=== PATIENT | male | born 1945 | race Caucasian/White ===

== ENCOUNTER → 2023-12-29 11:33 | Outpatient (REF) | payer MEDICARE, OTHER, SELFPAY ==
[2023-12-29 12:32] LABS: % Basophils 0.7 % (0-2); % Immature Granulocytes 0.3 % (0-0.5); % Lymphocytes 26.5 % (20.5-51.1); % Monocytes 8.9 % (1.7-9.3); % Neutrophils 60.6 % (42.2-75.2); Absolute Basophils 0.1 10^3/uL (0-0.2); Absolute Eosinophils 0.2 10^3/uL (0-0.7); Absolute Lymphocytes 1.9 10^3/uL (1.2-3.4); Absolute Monocytes 0.7 10^3/uL (0.1-0.6); Absolute Neutrophils 4.5 10^3/uL (1.4-6.5); Hematocrit 46.5 % (39.0-52.0); Hemoglobin 16.2 g/dL (13.0-18.0); Mean Corp Hgb Conc. 34.8 g/dL (33.0-37.0); Mean Corpuscular Hgb 32.3 pg (27.0-31.0); Mean Corpuscular Volume 92.6 fL (80.0-94.0); Mean Platelet Volume 9.4 fL (7.4-10.4); Nucleated Red Blood Cells % 0 % (-); Platelet Count 219 10^3/uL (130-400); Red Blood Cell Count 5.02 10^6/uL (4.70-6.10); Red Cell Dist. Width 12.7 % (11.5-14.5); White Blood Cell Count 7.3 10^3/uL (4.8-10.8)
[2023-12-29 12:47] LABS: ALT (SGPT) 30 U/L (0-50); AST (SGOT) 32 U/L (17-59); Albumin 4.8 g/dl (3.5-5.0); Alkaline Phosphatase 73 U/L (38-126); Blood Urea Nitrogen 23 mg/dl (9-20); Calcium 9.9 mg/dl (8.4-10.2); Carbon Dioxide 27 mmol/L (22-30); Chloride 103 mmol/L (98-107); Glucose 92 mg/dl (70-99); HDL Cholesterol 47 mg/dl; LDL Cholesterol, Calculated 196 mg/dl; Potassium 4.4 mmol/L (3.5-5.1); Sodium 137 mmol/L (135-145); Total Cholesterol 286 mg/dl (50-199); Total Protein 7.6 g/dl (6.3-8.2); Triglyceride 218 mg/dl (10-149); Very Low Density Lipoprotein 43 mg/dl (0-30); eGFR > 60.00
[2023-12-29 13:17] LABS: PSA, Total - Screen 1.28 ng/ml (0.0-4.0); TSH 1.99 uIU/ml (0.47-4.68)
== END ==
LOC: REG 11:33
PROVIDERS: ATTENDING PHYSICIAN Internal Medicine
DX: E78.5 Hyperlipidemia, unspecified (principal); R06.83 Snoring; G47.33 Obstructive sleep apnea (adult) (pediatric); N40.0 Benign prostatic hyperplasia without lower urinary tract symptoms; Z12.5 Encounter for screening for malignant neoplasm of prostate
CPT/HCPCS: 36415; 80053; 80061; 84443; 85025; G0103

== ENCOUNTER → 2025-01-08 10:40 | Outpatient (REF) | payer MEDICARE, OTHER, SELFPAY ==
[2025-01-08 11:29] LABS: % Basophils 0.7 % (0-2); % Eosinophils 3.4 % (0-6); % Immature Granulocytes 0.3 % (0-0.5); % Lymphocytes 23.1 % (20.5-51.1); % Monocytes 7.8 % (1.7-9.3); % Neutrophils 64.7 % (42.2-75.2); Absolute Basophils 0.1 10^3/uL (0-0.2); Absolute Eosinophils 0.2 10^3/uL (0-0.7); Absolute Lymphocytes 1.7 10^3/uL (1.2-3.4); Absolute Monocytes 0.6 10^3/uL (0.1-0.6); Absolute Neutrophils 4.6 10^3/uL (1.4-6.5); Hematocrit 44.6 % (39.0-52.0); Hemoglobin 15.6 g/dL (13.0-18.0); Mean Corpuscular Volume 94.3 fL (80.0-94.0); Mean Platelet Volume 10.2 fL (7.4-10.4); Nucleated Red Blood Cells % 0 % (-); Platelet Count 173 10^3/uL (130-400); Red Blood Cell Count 4.73 10^6/uL (4.70-6.10); Red Cell Dist. Width 12.8 % (11.5-14.5); White Blood Cell Count 7.1 10^3/uL (4.8-10.8)
[2025-01-08 12:01] LABS: ALT (SGPT) 24 U/L (0-50); AST (SGOT) 25 U/L (17-59); Albumin 4.5 g/dl (3.5-5.0); Alkaline Phosphatase 66 U/L (38-126); Blood Urea Nitrogen 21 mg/dl (9-20); Calcium 9.4 mg/dl (8.4-10.2); Carbon Dioxide 27 mmol/L (22-30); Chloride 107 mmol/L (98-107); Glucose 97 mg/dl (70-99); HDL Cholesterol 41 mg/dl; LDL Cholesterol, Calculated 120 mg/dl; Potassium 4.6 mmol/L (3.5-5.1); Sodium 142 mmol/L (135-145); Total Cholesterol 192 mg/dl (50-199); Total Protein 6.9 g/dl (6.3-8.2); Triglyceride 156 mg/dl (10-149); Very Low Density Lipoprotein 31 mg/dl (0-30); eGFR > 60.00
[2025-01-08 12:25] LABS: PSA, Total - Screen 1.02 ng/ml (0.0-4.0)
== END ==
LOC: REG 10:40
PROVIDERS: ATTENDING PHYSICIAN Physician Assistant
DX: R07.89 Other chest pain (principal); R06.09 Other forms of dyspnea; E78.5 Hyperlipidemia, unspecified; G47.33 Obstructive sleep apnea (adult) (pediatric); Z12.5 Encounter for screening for malignant neoplasm of prostate
CPT/HCPCS: 36415; 80053; 80061; 85025; G0103

== ENCOUNTER → 2025-01-18 15:46 | Outpatient (REF) | payer MEDICARE, OTHER, SELFPAY | LOC: RCS 15:46 | PROVIDERS: ATTENDING PHYSICIAN Physician Assistant | DX: R07.89 Other chest pain (principal); R06.09 Other forms of dyspnea | CPT/HCPCS: 93306 ==

== ENCOUNTER → 2025-01-21 09:55 | Outpatient (REF) | payer MEDICARE, OTHER, SELFPAY | LOC: RCS 09:55 | PROVIDERS: ATTENDING PHYSICIAN Physician Assistant | DX: R07.89 Other chest pain (principal); R06.09 Other forms of dyspnea | CPT/HCPCS: 93017 ==

== ENCOUNTER 2025-01-28 07:01 | Day surgery (SDC) | payer MEDICARE, OTHER, SELFPAY ==
[2025-01-28] VITALS (10 sets, daily range): BP systolic 102–140; BP diastolic 67–95; BMI 29.7
[2025-01-28] MEDS: LOW STRENGTH ASPIRIN 324 MG PO (07:53)
--- NOTE | 2025-01-28 08:41 | ITS.CL.CATH ---
Library Assistant - Catheterization
Cardiac Catheterization
Procedure Report:
CARDIAC CATHETERIZATION REPORT
Date of Procedure: 01/28/2025
Referring: Jethro Beltran M.D.
INDICATION: Typical angina, multiple CAD risk factors, high risk stress test.
PROCEDURE:
1. Left heart catheterization.
2. Coronary angiography.
A total of 28 minutes of procedural/moderate sedation was utilized. An independent product manager medical device was present to assist with and help manage the patient's level of consciousness and physiologic status.
ACCESS:
1. 6 [place] right rate artery using a modified Seldinger technique.
CATHETERS:
1. 5 [place] JR4.
2. 5 [place] JL 3.5.
HEMODYNAMIC DATA
Weight (kg): 83.5
AO (s/d/x, mmHg): 110/75/90
LV (s/x mmHg): 112/12
LEFT VENTRICULOGRAPHY: Not performed.
CORONARY ANGIOGRAPHY
Dominance: Right.
Left Main: Normal size, bifurcating vessel. There is a calcified, 70% lesion in the distal vessel leading into the ostial LAD and circumflex.
LAD: Normal size vessel giving rise to 1 notable diagonal. There is a 70% lesion in the ostium of the vessel that extends from the 70% distal left main lesion. There is a 50-60% lesion in the proximal vessel, proximal to the origin of the
diagonal.
Ramus: Congenitally absent.
Circumflex: Normal size, nondominant vessel that is essentially a single large obtuse marginal which bifurcates into several daughter vessels. The terminal vessels of the circumflex are severely tortuous. There is an 80% lesion in the ostium of
the vessel that extends from the left main coronary artery. Immediately distal to this 80% lesion is a 90% lesion in the proximal circumflex with post stenotic dilation.
RCA: Small to medium size, dominant vessel with diffuse, mild to moderate disease but no discrete stenosis.
INTERVENTION(S)
None.
Closure Device: Vascular band.
Radiation (mGy): 280.96
DAP (cm2.Gy): 24.7282
Fluoroscopy time (minutes): 3.6
CONCLUSIONS
1. Right dominant circulation with mild to moderate, diffuse disease in the RCA, a 70% lesion in the distal left main coronary artery leading into a 70% lesion in the ostium of the LAD as well as an 80% lesion in the ostium of the left circumflex,
a separate, 50-60% lesion in the proximal LAD, proximal to the origin of D1 and a 90% lesion in the proximal circumflex with poststenotic dilation.
2. Normal filling pressures (LVEDP = 12 mmHg at 83.5 kg).
RECOMMENDATIONS:
1. Expectant management after cardiac catheterization via right radial approach.
2. Limited weight bearing on the right wrist for one week.
3. Consultation with CT surgery regarding optimal revascularization strategy.
4. Start metoprolol 25 mg daily and sublingual nitroglycerin as needed.
5. Aggressive secondary prevention with high-dose, high potency statin. Goal LDL <55.
6. Stable for outpatient follow-up.
Copy to: Jethro Beltran M.D., Gabo Bashir M.D.
Mark Choe DO, FACC, FACP
[2025-01-28] MEDS: NSS 1000 IV (09:28)
[2025-01-28] MEDS: NSS 250 ML IV (09:30)
== END 2025-01-28 13:32 | disposition home or self-care (01) ==
LOC: CATH 07:01
PROVIDERS: ATTENDING PHYSICIAN Internal Medicine Cardiovascular Disease; CONSULT PHYSICIAN Thoracic Surgery (Cardiothoracic Vascular Surgery); FAMILY PHYSICIAN Physician Assistant; OTHER PHYSICIAN Internal Medicine Cardiovascular Disease
DX: R94.39 Abnormal result of other cardiovascular function study (principal); I25.10 Atherosclerotic heart disease of native coronary artery without angina pectoris; E78.5 Hyperlipidemia, unspecified; R06.09 Other forms of dyspnea; G47.33 Obstructive sleep apnea (adult) (pediatric); Z85.828 Personal history of other malignant neoplasm of skin; Z87.891 Personal history of nicotine dependence; Z79.82 Long term (current) use of aspirin
CPT/HCPCS: 99152; 99153; C1894; 93458; Q9967

== ENCOUNTER 2025-02-18 05:11 | Inpatient (IN) | payer MEDICARE, OTHER, SELFPAY ==
[2025-02-12 12:16] VITALS: BMI 28.5
[2025-02-12 13:05] LABS: Hematocrit 42.5 % (39.0-52.0); Hemoglobin 15.2 g/dL (13.0-18.0); Mean Corp Hgb Conc. 35.8 g/dL (33.0-37.0); Mean Corpuscular Volume 92.0 fL (80.0-94.0); Nucleated Red Blood Cells % 0 % (-); Platelet Count 190 10^3/uL (130-400); Red Cell Dist. Width 12.7 % (11.5-14.5)
[2025-02-12 13:07] LABS: Urine Character Clear (Clear)
[2025-02-12 13:17] LABS: INR 1.01; PT 13.6 Sec (11.4-14.6)
[2025-02-12 13:18] LABS: APTT 30.4 Sec (23.4-35.0)
[2025-02-12 13:23] LABS: ALT (SGPT) 23 U/L (0-50); AST (SGOT) 24 U/L (17-59); Albumin 4.5 g/dl (3.5-5.0); Alkaline Phosphatase 63 U/L (38-126); Blood Urea Nitrogen 18 mg/dl (9-20); Calcium 10.1 mg/dl (8.4-10.2); Carbon Dioxide 27 mmol/L (22-30); Chloride 107 mmol/L (98-107); Estimated Creatinine Clearance 55 ml/min; Glucose 77 mg/dl (70-99); Potassium 4.4 mmol/L (3.5-5.1); Sodium 141 mmol/L (135-145); Total Protein 7.0 g/dl (6.3-8.2); eGFR > 60.00
--- NOTE | 2025-02-12 14:10 | CM ---
[facility] He states prior to admission he resides with his spouse in a two story home with two steps to enter. He states he has a full flight of steps to get to bedroom/full bathroom. He states he has a powder room on the
first floor. He states prior to admission he was independent with ambulation and adls. He states he has a CPAP Machine at home and no other DME in the home. He states he has a prescription plan and uses [facility]. He states his spouse will
be home. The discharge plan is to return home with his spouse and a home visit by the Transitional Care Nurse when medically stable.
We reviewed pre-op and post-op routines. We reviewed the shower instructions. He has the soap, written instructions and the Cardiothoracic Surgery Educational Booklet. We also reviewed restrictions including driving and sternal precautions. We
discussed a home visit by the Transitional Care Nurse. He is agreeable to a home visit. The plan is for CABG on Tuesday, February 18, 2025.
[2025-02-13 08:30] LABS: Glycohemoglobin (HgbA1c) 5.9 % (4.0-5.6)
[2025-02-18] VITALS (24 sets, daily range): BP systolic 85–139; BP diastolic 60–97; BMI 27.9
[2025-02-18] MEDS: PROTONIX 40 MG PO (05:51)
[2025-02-18] MEDS: MAGNESIUM OXIDE 500 MG PO (05:51)
[2025-02-18] MEDS: LOPRESSOR 25 MG PO (05:51)
[2025-02-18] MEDS: BACTROBAN 2% OINTMENT 1 APPLIC NASAL ×2 (05:51→19:53)
--- NOTE | 2025-02-18 06:08 | PTCARENOTE ---
Patient admitted to CVICU. Admission questions asked. Medication reconciliation performed. Patient clipped and CHG cloth bath performed. Labs obtained. Medications administered. Awaiting CVOR.
--- NOTE | 2025-02-18 06:11 | W.CVOR.SURPR ---
CVOR Surgeon Immed Pre Op
-
I have examined this patient prior to performance of the scheduled procedure.
The patient's condition is unchanged from the time of the dictated/written History and
Physical and the patient is able to undergo the scheduled procedure.
[2025-02-18 07:29] LABS: Urine Character Clear (Clear)
[2025-02-18 07:48] LABS: ACT+ - POC 126 Seconds (82-134)
--- NOTE | 2025-02-18 08:41 | CM ---
Reviewed chart. Mr. Ochoa is in the operating room today. Prior to admission he resides with his spouse in a two story home with two steps to enter. He has a full flight of steps to get to bedroom/full bathroom. He has a powder room on the first
floor. Prior to admission he was independent with ambulation and adls. He has a CPAP Machine at home and no other DME int he home. He has a prescription plan and uses [facility]. His spouse will be home. The discharge plan is to return home
with his spouse and a home visit by the Transitional Care Nurse when medically stable.
[2025-02-18 09:29] LABS: ACT+ - POC 546 Seconds (82-134)
[2025-02-18 10:00] LABS: B.E. - POC 0.7 mmol/L; Glucose - POC 108 mg/dl (70-99); HCO3 - POC 26 mmol/L (21-28); Hematocrit - POC 38 % PCV (42-52); Hemodilution- POC No; Hemoglobin Calculated - POC 12.9; Ionized Calcium - POC 1.22 mmol/L (1.15-1.33); Lactate - POC 1.01 mmol/L (0.36-0.75); O2 Saturation %Calculated-POC 99.7 % (94-98); PCO2 - POC 42 mmHg (35-48); PO2 - POC 212 mmHg (83-108); Potassium - POC 3.7 mmol/L (3.5-5.1); Sodium - POC 140 mmol/L (136-145); Specimen Type - POC Arterial; pH - POC 7.40 (7.35-7.45)
[2025-02-18 10:11] LABS: ACT+ - POC 568 Seconds (82-134)
[2025-02-18 10:39] LABS: B.E. - POC 4.0 mmol/L; Glucose - POC 131 mg/dl (70-99); HCO3 - POC 27 mmol/L (21-28); Hematocrit - POC 30 % PCV (42-52); Hemodilution- POC Yes; Hemoglobin Calculated - POC 10.1; Ionized Calcium - POC 1.03 mmol/L (1.15-1.33); Lactate - POC 1.13 mmol/L (0.36-0.75); O2 Saturation %Calculated-POC 100.0 % (94-98); PCO2 - POC 35 mmHg (35-48); PO2 - POC 352 mmHg (83-108); Potassium - POC 5.3 mmol/L (3.5-5.1); Sodium - POC 141 mmol/L (136-145); Specimen Type - POC Arterial; pH - POC 7.50 (7.35-7.45)
[2025-02-18 10:48] LABS: ACT+ - POC 476 Seconds (82-134)
[2025-02-18 11:28] LABS: B.E. - POC 3.3 mmol/L; Glucose - POC 153 mg/dl (70-99); HCO3 - POC 27 mmol/L (21-28); Hematocrit - POC 32 % PCV (42-52); Hemodilution- POC Yes; Hemoglobin Calculated - POC 10.8; Ionized Calcium - POC 1.07 mmol/L (1.15-1.33); Lactate - POC 1.18 mmol/L (0.36-0.75); O2 Saturation %Calculated-POC 100.0 % (94-98); PCO2 - POC 35 mmHg (35-48); PO2 - POC 347 mmHg (83-108); Potassium - POC 5.1 mmol/L (3.5-5.1); Sodium - POC 141 mmol/L (136-145); Specimen Type - POC Arterial; pH - POC 7.49 (7.35-7.45)
[2025-02-18 11:36] LABS: ACT+ - POC 126 Seconds (82-134)
[2025-02-18 11:38] LABS: B.E. - POC -0.0 mmol/L; Glucose - POC 128 mg/dl (70-99); HCO3 - POC 25 mmol/L (21-28); Hematocrit - POC 29 % PCV (42-52); Hemodilution- POC Yes; Hemoglobin Calculated - POC 9.8; Ionized Calcium - POC 1.25 mmol/L (1.15-1.33); Lactate - POC 1.54 mmol/L (0.36-0.75); O2 Saturation %Calculated-POC 100.0 % (94-98); PCO2 - POC 39 mmHg (35-48); PO2 - POC 372 mmHg (83-108); Potassium - POC 4.4 mmol/L (3.5-5.1); Sodium - POC 142 mmol/L (136-145); Specimen Type - POC Arterial; pH - POC 7.41 (7.35-7.45)
--- NOTE | 2025-02-18 12:12 | W.IMMPOSTOP ---
Addendum entered and electronically signed by Taj Condon MD 02/18/25 14:00:
[id number]
Original Note:
Surgical Immed Post Op Note
-
CARDIAC SURGERY OPERATIVE NOTE:
Preoperative Dx:
MVCAD including LM disease
Postoperative Dx:
Same
Procedures:
1) Median sternotomy
2) Takedown of THOMAS (narrow pedicle)
3) Endoscopic harvest/prep of RLE GSV
4) CABG x 2 (THOMAS to LAD, GSV to OM)
5) ELAA (40mm AtriClip)
Surgeon:
Taj Condon M.D.
Assistants:
Carlos CarterAJoseline-CJoseline; patient care nursing assistant throughout
Bob Hong-CJoseline; endoscopic harvest/prep of RLE GSV; [id number]-sonf sternotomy closure
Anesthesia:
Marbella LeeN.A. and Hamlet Blanco M.D.
Perfusion:
Stacey RuizC.P.; XC: 62min, CPB: 86min
Findings:
THOMAS was a healthy conduit w/ brisk blood flow, slightly small ELD (2.25mm)
GSV was healthy conduit w/ ELD 3.5mm
LAD was visible on the epicardial surface, moderate scattered calcifications, ELD 2.75mm at distal midpoint anastomosis
D1 was visible on the epicardial surface, no sig calcifications, serpentine course w/ small caliber (~1.0mm) - bypass not performed.
OM was visible on the epicardial surface, scant calcifications, serpentine course, ELD 2.75mm
SUBHA w/ 'windsock' morphology, good placement of AtriClip at base, confirmed excluded on postoperative EDMAR assessment
Good flow in both grafts on intraoperative transit-time U/S flow-probe assessment
Post-EDMAR: Normal biventricular function; trace AI
Pt. w/ baseline bradycardia in 50s-60s under GA. Initially requiring pacing. A- and V- wires placed. He then regained NSR at 69bpm which was maintained.
Implants:
Epicardial bipolar V-wire (sutures to anterior RV)
Epicardial unipolar A-wire (sutured to RA/SVG junction)
Grounding unipolar A-wire (secured to skin)
AtriClip 40mm; LOT [id number]
CT x 4 (B/L pleural, inferior mediastinal, superior mediastinal)
Sternal wires x 7
Sternal 'X' plate @ manubrium w/ 4 - 12mm and 4 - 14mm screws
Sternal 'X' plate @ lower sternal body w/ 8 - 10mm screws
Complications:
None
Transfusions:
None
Condition:
Stable/guarded to CVICU
70 sinus (0.7/0.1); 100/67, CVP 8; 100%
GTTS: levophed 5, precedex 0.5, insulin 1
--- NOTE | 2025-02-18 12:29 | W.PN.CD ---
Addendum entered and electronically signed by Donavon Rodas MD 02/18/25 14:53:
Patient seen and examined in collaboration with [employer]; agree with below.
- 79-year-old male who underwent successful CABG x 2 today.
- Remains intubated; on low-dose Levophed.
- Continue routine post-operative care as directed by CT Surgery.
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
Original Note:
Today's Communication / Plan
-
Follow telemetry
Impression / Plan
-
I/P: 79M with HLD, CHRIS and an abnormal stress test which lead to cardiac catheterization which demonstrated MV disease including LM is here for CABG
Outpatient plating stripper: Dr. Beltran
CAD s/p CABG x 2 (THOMAS to LAD, GSV to OM & Atriclip) by Dr. Condon on 02/18/2025
-Post-EDMAR: Normal biventricular function; trace AI
-Bradycardia under GA requiring pacing, now in sinus, follow telemetry
-EKG pending
HTN, chronic, metoprolol on hold
Pre-diabetes, Hgba1c 5.9%
HLD, goal LDL < 70, LDL 120 (lowest over several years), consider increasing dose to 80mg, he will likely need Zetia as well
Former smoker, continued cessation recommended
Physical Exam
Vital Signs/Labs
Vital Signs
Temp Pulse Resp BP Pulse Ox
97.5 F 80 16 130/74 98
02/18/25 05:43 02/18/25 05:43 02/18/25 05:43 02/18/25 05:51 02/18/25 05:43
02/17/25 02/18/25 02/19/25
06:59 06:59 06:59
Actual Weight 80.6 kg
PT 13.6 Sec (11.4-14.6) 02/12/25 12:32
INR 1.01 02/12/25 12:32
APTT 30.4 Sec (23.4-35.0) 02/12/25 12:32
Physical Exam
Constitutional: No acute distress and Comfortable
EENT: Anicteric and Moist mucous membranes
Cardiovascular: Rhythm & rate is regular and Pedal edema is absent
Respiratory: Respiratory effort normal and Lungs clear to auscul.
GI: Soft, Distention absent, Flat, Non tender and Normal bowel sounds
Neuro/Psych: AO x 3
Other: Skin (warm and dry)
Data Reviewed
-
Date of Service: February 18, 2025
EKG: Report Reviewed by me
Labs: Labs Reviewed by me
Old Records: Reviewed
[2025-02-18 12:49] LABS: Glucose - Point of Care 137 mg/dl (70-99)
--- NOTE | 2025-02-18 13:00 | CON.INTV ---
Consultation
Consultation Request
Date/Time Consultation Requested: 02/18/2025-1 PM
Date/Time Consultation Performed: 02/18/2025-1:30 PM
Requesting Provider: Cardiovascular surgery
Performing Provider: Dr. Cartagena
Reason for Consultation: Postoperative ventilator/critical care management
Medical History
-
Chief Complaint: CAD
History of Present Illness:
79-year-old male with a history of hyperlipidemia and central and obstructive sleep apnea on CPAP 10 cm who was noted to have underlying multivessel CAD undergone CABG and import coordinator consulted for postoperative ventilator/critical care management
02/18/2025. Patient is intubated on a ventilator and review of systems was unobtainable. Operative records were reviewed. Pressors, chest tube output, etc. were reviewed with critical care nursing.
Past Medical History
Past Medical History: None (Hyperlipidemia. CHRIS/CPAP 10 cm. Skin cancer. Former smoker quit 1999. Dental implants.)
Social History
Tobacco: Former Smoker (Quit 1999)
Drug: None
Living: With Family
Occupational Exposures: No known asbestos exposure
Environmental Exposures: No known tuberculosis exposure
Family History
Family History: Reviewed & Not Pertinent (CAD and breast cancer)
Allergies / Home Medications
Allergies
Allergy/AdvReac Type Severity Reaction Status Date / Time
No Known Allergies Allergy Verified 02/18/25 05:46
Home Medications
�Medication �Instructions �Recorded �Confirmed �Last Taken �Type
aspirin 81 mg chewable tablet 162 mg PO DAILY 01/28/25 02/18/25 02/16/25 19:00 History
atorvastatin 40 mg tablet 40 mg PO HS 01/28/25 01/28/25 02/16/25 19:00 History
metoprolol succinate 25 mg 25 mg PO DAILY #90 tabs 01/28/25 02/16/25 Rx
tablet,extended release 24 hr 1900
nitroglycerin 0.4 mg sublingual 0.4 mg sublingual [id number] PRN 01/28/25 Unknown Rx
tablet chest pain #25 tabs
Review of Systems
-
Unable to Obtain full review of systems at this time due to: Patient Intubation and Other
Vitals / Labs / Diagnostic Testing
Vital Signs
Temp Pulse Resp BP Pulse Ox
97.5 F 80 16 130/74 98
02/18/25 05:43 02/18/25 05:43 02/18/25 05:43 02/18/25 05:51 02/18/25 05:43
Diagnostic Testing:
Physical Exam
-
Exam:
Well-nourished and well-developed in no apparent distress
HEENT-atraumatic, normocephalic, oral tracheal intubation
Heart-regular rate and rhythm-no murmurs, rubs or gallops
Chest-clear to auscultation, no wheezes, crackles, median sternotomy bandage is not removed
Abdomen soft nondistended
Extremities-no cyanosis, clubbing, edema and good peripheral pulses
Integument-intact, no rashes, lesions or ecchymosis
Neurologically not alert, not oriented, not moving any of his extremities sedated on a ventilator
Assessment
-
79-year-old male with a history of hyperlipidemia and central and obstructive sleep apnea on CPAP 10 cm who was noted to have underlying multivessel CAD undergone CABG and import coordinator consulted for postoperative ventilator/critical care management
02/18/2025.
Multivessel CAD with preserved preoperative EF
Status post CABG x 2-Erlinda-LAD, GSV-OM-Dr. Condon 02/18/2025
Preoperative A1c 5.9%
Conditions present prior to admission:
Hyperlipidemia.
CHRIS/CPAP 10 cm.
Skin cancer.
Former smoker quit 1999. Dental implants.
Plan
Ventilator settings reviewed
FiO2 will be weaned
Minute ventilation will be adjusted
Arterial blood gases will be monitored
Spontaneous breathing trial will be attempted with hopeful extubation after anesthesia/sedation wear off
Pulmonary artery catheter parameters will be followed
Pressors/antihypertensive/inotropes/diuretics will be provided as needed
Monitor chest tube output
Monitor hemoglobin
Monitor platelet count and coags
Transfuse blood product if needed
CT surgery following chest tubes
Monitor blood sugar
Insulin drip per protocol
Patient can be transition once extubated to CPAP 10 cm
Aspiration precautions
VAP prevention protocol
DVT prophylaxis
Early nutrition
Early mobilization
Patient followed in the office by Dr. Rucker-kuldeep saw Radha Browner INSTRUMENT AND ELECTRICAL TECHNICIAN 01/09/2025
Critical care statement: A total of 50 minutes of critical care time was provided for this patient today. This includes management of ventilator, spontaneous breathing trial, arterial blood gases, pressors, of unstable vital signs, evaluation of the
patient at bedside, reviewing the patient's pertinent medical records including radiographs, microbiology, laboratory evaluations, and discussion with primary team and critical care nursing.
Diagnostic data:
Chest x-ray 03/03/2019-NAD, mild biapical pleural thickening
CT chest 02/13/2025-NAD
Echocardiogram 01/18/2025-EF 60-65%, mild aortic regurgitation, PA systolic 26
Exercise stress test 01/21/2025-positive EKG for ischemia with anginal symptoms, moderate to high risk study
Cardiac catheterization 01/28/2025-diffuse distal RCA disease, 70% lesion distal left main and 70% lesion in the ostium of the LAD as well as 80% lesion in the ostium of the left circumflex with a separate 60% lesion proximal LAD and 90% lesion
proximal circumflex
Spirometry 02/08/2025-FEV1 2.69 L - 103%, FVC 3.83 L - 109%
Sleep study-11/17/16: Portable monitored study at home. Respiratory event index was 8.7 events per hour. He had 16 obstructive apneas, 34 hypopneas and 22 central apneas. There were 6 mixed apneas. Saturation eveline was 80%.
Sleep study-CPAP titration-01/26/2017: CPAP titration: Sleep efficiency 79.2%, CPAP titrated to 10 cm, AHI reduced to 0.9 events/hour, O2 eveline 87%.
Data Reviewed
-
PFT: Report reviewed by me
EKG: Report reviewed by me
Radiology: Report reviewed by me
CT Scan: Report reviewed by me
Medical Tests (Nuc Med, Echo etc): Report reviewed by me
Labs: Labs reviewed by me
Old Records: Reviewed
Critical Care Time (in minutes): 50
[2025-02-18 13:06] LABS: B.E. -2.7 mmol/L; HCO3 22.6 mmol/L (21-28); O2 Saturation % 99.0 % (94-98); PCO2 40 mmHg (35-48); PO2 190 mmHg (83-108); Potassium 4.3 mMOL/L (3.5-5.1); Sodium 136 mMOL/L (136-145)
[2025-02-18 13:15] LABS: INR 1.33; PT 16.8 Sec (11.4-14.6)
[2025-02-18 13:16] LABS: APTT 31.0 Sec (23.4-35.0)
--- NOTE | 2025-02-18 13:24 | PTCARENOTE ---
received pt from the CVOR into 2266, sinus rhythm on tele w HR 70's, + peripheral pulses, epicardial AV wires insulated, left radial adeola leveled and zeroed, BP 90's/60's, Levophed infusing at 2mcg, CVP 5, 250ml LR bolus administered per CT BERT. #8
ETT/ 24cm right lip
VENT SETTINGS: 500/14/40%/+5 peep, pox 99%. Surgical sites stable, CT x4 w minimal amount of red drainage, gutierrez catheter draining pink tinged urine. CPOT 0 RASS-5
DRIPS:
Levophed 2mcg/min
Precedex 0.5mcg/kg/hr
Insulin titrated per glycemic protocol
[2025-02-18 13:29] LABS: Blood Urea Nitrogen 17 mg/dl (9-20); Estimated Creatinine Clearance 69 ml/min; Glucose 134 mg/dl (70-99); Magnesium 2.7 mg/dl (1.6-2.3)
[2025-02-18 13:44] LABS: Hematocrit 35.2 % (39.0-52.0); Hemoglobin 12.6 g/dL (13.0-18.0); Platelet Count 132 10^3/uL (130-400)
[2025-02-18 14:09] LABS: Glucose - Point of Care 121 mg/dl (70-99)
[2025-02-18] MEDS: ANCEF 10 IV ×2 (14:12)
[2025-02-18] MEDS: NSS 500 IV (14:12)
[2025-02-18] MEDS: TYLENOL PO (14:13)
[2025-02-18] MEDS: CALCIUM GLUCONATE 100 IV (14:18)
--- NOTE | 2025-02-18 14:18 | W.PN.UPDATE ---
Update Note
Progress Note Update
79-year-old male was electively mated on 02/18/2025 for CABG due to left main/2 vessel coronary disease.
IV fluids: 1600
U.O.:� 900
Blood:� none
Wires:� A + V wires
Drips: Levo @ 5, Insulin, Precedex
�
NEURO: sedated, pupils +2mm B/L
RESP: #8OT @24cm> 500/60%/14/5. Lungs clear B/L. 2 mediastinal (20cc on arrival) and R/L pleural (5cc on arrival) chest tubes to -20cm suction. Sanguineous drainage, no air leak, no crepitus
CV: RRR +S1, S2, no S3, no�rub, no murmur. Dermabond to median sternotomy. RIJ w/Slik
ABD: round, soft, no BS
EXT: no edema, +2/4 DP pulses B/L, no femoral bruit, RLE CHLOE wrap intact; left radial A-line intact
: Owens with clear yellow urine
�
A/P: POD #0 s/p CABG x 2 (THOMAS to LAD, GSV to OM), ELAA (40mm AtriClip)
EDMAR: EF�60-65%, mild MR
- wean and extubate
# CAD
- will require ASA, Plavix, statin, beta-jean-pierre
�
# acute surgical blood loss anemia-expected
- trend CBC
# Hx CHRIS w/CPAP
- resume�HS CPAP use (has own machine)
[2025-02-18 15:10] LABS: Glucose - Point of Care 128 mg/dl (70-99)
[2025-02-18] MEDS: PACERONE PO (15:29)
[2025-02-18 16:09] LABS: Glucose - Point of Care 96 mg/dl (70-99)
--- NOTE | 2025-02-18 16:12 | PTCARENOTE ---
pt w HR 44, set epicardial wires to AAI 80/10.
[2025-02-18 16:30] LABS: B.E. - POC 0.9 mmol/L; Blood Urea Nitrogen - POC 16 mg/dl (3-120); Chloride - POC 108 mmol/L (96-111); Creatinine - POC 0.88 mg/dl (0.3-1.0); Glucose - POC 94 mg/dl (70-99); HCO3 - POC 25 mmol/L (21-28); Hematocrit - POC 35 % PCV (42-52); Hemodilution- POC No; Hemoglobin Calculated - POC 12.0; Ionized Calcium - POC 1.27 mmol/L (1.15-1.33); Lactate - POC 2.17 mmol/L (0.36-0.75); O2 Saturation %Calculated-POC 98.5 % (94-98); PCO2 - POC 39 mmHg (35-48); PO2 - POC 111 mmHg (83-108); Potassium - POC 4.1 mmol/L (3.5-5.1); Sodium - POC 141 mmol/L (136-145); Specimen Type - POC Arterial; pH - POC 7.42 (7.35-7.45)
--- NOTE | 2025-02-18 16:39 | PTCARENOTE ---
pt extubated to 6L NC, pox 97%.
--- NOTE | 2025-02-18 16:42 | RESPNOTE ---
16:30 extubated patient and placed on 6L nasal cannula 98%
--- NOTE | 2025-02-18 16:50 | PTCARENOTE ---
CHG bath complete, pt turned from side to side without large output from CTs. Routine follow up labs obtained.
[2025-02-18 16:57] LABS: Glucose - Point of Care 102 mg/dl (70-99)
[2025-02-18 17:03] LABS: Hematocrit 35.9 % (39.0-52.0); Hemoglobin 13.1 g/dL (13.0-18.0); Platelet Count 155 10^3/uL (130-400)
[2025-02-18] MEDS: LOW STRENGTH ASPIRIN 81 MG PO (17:15)
[2025-02-18] MEDS: DILAUDID 0.5 MG IV ×2 (17:15→20:11)
--- NOTE | 2025-02-18 17:29 | PTCARENOTE ---
family at bedside, updated. Pt medicated for pain.
[2025-02-18 18:08] LABS: Glucose - Point of Care 96 mg/dl (70-99)
[2025-02-18] MEDS: OFIRMEV 100 IV (18:21)
[2025-02-18] MEDS: ANCEF 5 IV (18:21)
--- NOTE | 2025-02-18 19:00 | PTCARENOTE ---
report received from previous RN, walking rounds done. pt AAOx4, c/o sternal incision pain. A. paced on monitor via epicardial wires, HR 80. + peripheral pulses, left radial adeola leveled and zeroed, BP 110's/70's, Levophed infusing at 5mcg, CVP 5.
POX 97% on 6LNC. Surgical sites stable, CT x4 intact to -20cm wall suctionm drainage within normal limits, gutierrez catheter draining CYU, UO adequate. insulin gtt infusing per glycemic protocol. see worklist for full assessment, VS, and interventions.
[2025-02-18] MEDS: SENOKOT-S 1 TABLET PO (19:53)
[2025-02-18 20:03] LABS: Glucose - Point of Care 138 mg/dl (70-99)
[2025-02-18] MEDS: CALCIUM GLUCONATE IV (20:23)
[2025-02-18] MEDS: SODIUM BICARBONATE 50 MEQ IV (20:23)
[2025-02-18] MEDS: CALCIUM GLUCONATE 130 MG IV (20:34)
[2025-02-18] MEDS: FLEXERIL 5 MG PO (20:51)
[2025-02-18 21:58] LABS: Glucose - Point of Care 107 mg/dl (70-99)
[2025-02-18] MEDS: TYLENOL 1000 MG PO (22:03)
[2025-02-18] MEDS: ZOFRAN 4 MG IV (22:05)
[2025-02-18] MEDS: LIPITOR 40 MG PO (22:06)
--- NOTE | 2025-02-18 23:00 | PTCARENOTE ---
no acute changes in assessment. epicardial wires rate decreased to 40, pt now SR w PVCs 70s-80s. pt remains on Levo gtt @ 2mcg. POX 93% on 6LNC. CT output and UO WNL. insulin gtt maintained per protocol. all surgical sites stable. pt sleeping
between care.
[2025-02-18] MEDS: LR 250 ML IV (23:37)
[2025-02-18] MEDS: LEVOPHED 250 IV (23:37)
[2025-02-19] VITALS (23 sets, daily range): BP systolic 83–132; BP diastolic 50–90; BMI 29.3
[2025-02-19 00:10] LABS: Glucose - Point of Care 117 mg/dl (70-99)
[2025-02-19] MEDS: DILAUDID 0.5 MG IV (00:10)
[2025-02-19] MEDS: NSS 250 IV (00:20)
--- NOTE | 2025-02-19 01:06 | W.PN.CT ---
Today's Communication / Plan
-
dinesh:
-No major issues overnight. Hemodynamically and neurologically intact
-Successfully extubated yesterday 02/18 @ 1700
-Was bradycardic with frequent PAC's postop, and noted to be hypotensive d/t rhythm S/P temporary A-paced. Amiodarone and BB held
-Intrinsic rhythm is NSR 70-80's with frequent PAC's. BP noted to drop with PAC's, gave 100 mg of po Amiodarone while paced for PAC's, gave 1 dose of Toradol for suspected acute pericarditis
-Off and on Levophed overnight, currently on Levophed @ 4, remains on insulin gtt per protocol
-Monitor chest tube drainage: 2meds 250/425, R/L pleurals 140/260
-U/O since OR 845 mL
-Cont. current meds (ASA, Plavix, Lipitor, holding Amiodarone and BB)
-Kept a-line and SLIC given BP rhythm/BP issues
-Kept gutierrez until later today
-Tele phase today when off Insulin gtt
-Maintain cordis
-Maintain temporary A/V pacer wires (will cut before d/c home)
-Encourage use of IS
-Wean off of O2 as tolerated
-OOB into chair
-Ambulate
Assessment / Plan
-
Assessment:
-S/P Median sternotomy/CABG x 2 (THOMAS to LAD, GSV to OM)/Endoscopic harvest/prep of RLE GSV/ELAA (40mm AtriClip), by Dr. Condon, 02/18/25, pod#1
-Multivessel CAD
-LVEF 60-65% per intraop EEG
-Mild MR
-HTN
-HLD
-Prediabetes (A1C 5.9)
-CHRIS (uses own CPAP)
-GERD
-NAVAJO (uses bilateral hearing aids)
-Hx skin ca on face s/p excision
-Former tobacco use (quit 1999)
-Chronic back pain
-DJD
-Hx frequent UTI's
-S/p colonoscopy
-Acute postop blood loss/Anemia (stable without blood transfusion)
-Acute postop bradycardia with frequent PACs, symptomatic requiring temporary pacing
-Acute postop atelectasis
-Acute postop hypervolemia with subsequent hypervolemia
-Acute postop EKG changes suspicious of acute pericarditis/has +rub
Discussed patient care with: Cardiology, Nursing, Respiratory Therapy, Pharmacy and Care Team
Subjective
Procedure
S/P Median sternotomy/CABG x 2 (THOMAS to LAD, GSV to OM)/Endoscopic harvest/prep of RLE GSV/ELAA (40mm AtriClip), by Dr. Condon, 02/18/25
-
Date of Service: February 19, 2025
Pt c/o incisional pain, otherwise feels well
Objective Data
-
PT 16.8 Sec (11.4-14.6) H 02/18/25 12:49
INR 1.33 02/18/25 12:49
APTT 31.0 Sec (23.4-35.0) 02/18/25 12:49
Vital Signs
Vital Signs
Temp Pulse Resp BP Pulse Ox
97.6 F 75 14 88/54 94
02/19/25 00:00 02/19/25 00:00 02/19/25 00:00 02/19/25 00:00 02/19/25 00:00
CT Intake/Output/Weight
02/18/25 02/18/25 02/19/25
06:59 18:59 06:59
Intake Total 949.8 / 1167.7 217.9 / 1167.7
Output Total 645 / 1120 475 / 1120
Balance 304.8 / 47.7 -257.1 / 47.7
SaO2: 94 (2L)
Physical Exam
-
General: Awake, Oriented and AOx3
Cardiovascular: Irregular rate & rhythm (sinus with frequent PAC's), No Murmurs, Rub (+rub) and No Gallop
Respiratory: Decreased Breath Sounds (at bases)
Sternum: Stable
Incision: Clean, Dry, Intact and Dressing Intact
Extremities: Other (+trace edema)
Data Reviewed
-
Lab Results: Results Reviewed
Medications: Active Meds Reviewed
Chest X-Ray: Report Reviewed and Image Reviewed
ECG: Report Reviewed and Image Reviewed
[2025-02-19 02:15] LABS: Glucose - Point of Care 102 mg/dl (70-99)
[2025-02-19 02:20] LABS: Hematocrit 31.7 % (39.0-52.0); Hemoglobin 11.4 g/dL (13.0-18.0); Mean Corp Hgb Conc. 36.0 g/dL (33.0-37.0); Mean Corpuscular Volume 91.6 fL (80.0-94.0); Platelet Count 145 10^3/uL (130-400); Red Cell Dist. Width 12.8 % (11.5-14.5)
[2025-02-19 02:42] LABS: Blood Urea Nitrogen 21 mg/dl (9-20); Calcium 8.9 mg/dl (8.4-10.2); Carbon Dioxide 25 mmol/L (22-30); Chloride 110 mmol/L (98-107); Estimated Creatinine Clearance 61 ml/min; Glucose 104 mg/dl (70-99); Magnesium 2.1 mg/dl (1.6-2.3); Potassium 4.4 mmol/L (3.5-5.1); Sodium 140 mmol/L (135-145); eGFR > 60.00
--- NOTE | 2025-02-19 03:00 | PTCARENOTE ---
no changes in assessment. epicardial wire rate back to [address] PA. pt A.paced @ 80. pt remains on Levo gtt @ 4mcg. POX 97% on 15L midflow NC. CT output and UO WNL. insulin gtt maintained per protocol. AM labs drawn and sent. all surgical sites
stable. pt sleeping between care.
[2025-02-19] MEDS: ANCEF 5 IV ×2 (03:06→11:29)
[2025-02-19] MEDS: PACERONE 100 MG PO (03:45)
[2025-02-19 04:27] LABS: Glucose - Point of Care 102 mg/dl (70-99)
[2025-02-19] MEDS: TORADOL 15 MG IV ×2 (05:01→12:59)
[2025-02-19 05:16] LABS: Hepatitis C Antibody Negative (Negative)
[2025-02-19 06:04] LABS: Glucose - Point of Care 115 mg/dl (70-99)
[2025-02-19] MEDS: TYLENOL 1000 MG PO ×2 (06:09→19:58)
--- NOTE | 2025-02-19 07:36 | W.PN.INTV ---
Today's Communication / Plan
Recommendations
Tolerated extubation
Wean FiO2
Pressors and diuretics as needed-still on low-dose norepinephrine
Monitor chest tube output
Insulin as needed-if comes off insulin drip and moved to telemetry then grain miller helper will sign off-call pulmonary if respiratory issues arise
Assessment
-
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
02/18/2025.
Multivessel CAD with preserved preoperative EF
Status post CABG x 2-Erlinda-LAD, GSV-OM-Dr. Condon 02/18/2025
Preoperative A1c 5.9%
Postoperative pericarditis
Conditions present prior to admission:
Hyperlipidemia.
CHRIS/CPAP 10 cm.
Skin cancer.
Former smoker quit 1999. Dental implants.
Plan
Tolerated extubation
Wean FiO2
Encourage incentive spirometry
Increase activity
Aspiration precautions
CPAP 10 cm at night-brought his own machine- May temporarily need to bleed oxygen during the nighttime into CPAP
Pulmonary artery catheter and arterial line will be removed
Pressors have been weaned
Continue to monitor chest tube output
Follow hemoglobin
Continue to follow platelet count and coags
Transfuse blood product as needed
CT surgery following chest tubes as well
Follow blood sugar
Insulin supplementation continues as needed
Early nutrition
Early mobilization
DVT prophylaxis
If able to be weaned off insulin drip then patient will be transferred to telemetry-grain miller helper will sign off-please call with pulmonary questions
Patient followed in the office by Dr. Rucker-last saw Radha Simin WRIGHT 01/09/2025
Critical care statement: A total of 38 minutes of critical care time was provided for this patient today. This includes management of ventilator, spontaneous breathing trial, arterial blood gases, pressors, of unstable vital signs, evaluation of the
patient at bedside, reviewing the patient's pertinent medical records including radiographs, microbiology, laboratory evaluations, and discussion with primary team and critical care nursing.
Diagnostic data:
Chest x-ray 03/03/2019-NAD, mild biapical pleural thickening
CT chest 02/13/2025-NAD
Echocardiogram 01/18/2025-EF 60-65%, mild aortic regurgitation, PA systolic 26
Exercise stress test 01/21/2025-positive EKG for ischemia with anginal symptoms, moderate to high risk study
Cardiac catheterization 01/28/2025-diffuse distal RCA disease, 70% lesion distal left main and 70% lesion in the ostium of the LAD as well as 80% lesion in the ostium of the left circumflex with a separate 60% lesion proximal LAD and 90% lesion
proximal circumflex
Spirometry 02/08/2025-FEV1 2.69 L - 103%, FVC 3.83 L - 109%
Sleep study-11/17/16: Portable monitored study at home. Respiratory event index was 8.7 events per hour. He had 16 obstructive apneas, 34 hypopneas and 22 central apneas. There were 6 mixed apneas. Saturation eveline was 80%.
Sleep study-CPAP titration-01/26/2017: CPAP titration: Sleep efficiency 79.2%, CPAP titrated to 10 cm, AHI reduced to 0.9 events/hour, O2 eveline 87%.
Subjective Dataa
Subjective Data
Date of Service:
Date of Service: February 19, 2025
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
Subjective:
Patient tolerated extubation, No complaints of shortness of breath, has some mild pleurisy on the right side, did not wear his CPAP last night, no abdominal pain
Review of Systems
General: Other (Per HPI)
Objective Data
Data Reviewed
Vital Signs / I&O / Oxygen:
Vital Signs
Temp Pulse Resp BP Pulse Ox
98.3 F 81 15 112/73 92
02/19/25 07:00 02/19/25 07:00 02/19/25 07:00 02/19/25 06:00 02/19/25 06:30
Intake and Output
02/18/25 02/19/25 02/20/25
06:59 06:59 06:59
Intake Total 1391.3 / 1428.6 37.3 / 37.3
Output Total 1530 / 1610 80 / 80
Balance -138.7 / -181.4 -42.7 / -42.7
SaO2 [SIMV] 98
SaO2 92
Nasal Cannula flow liters per 6
minute
Physical Exam
General: Respiratory Distress and Comfortable
HEENT: Normocephalic, Anicteric and Moist Mucous Membranes
Cardiovascular: Regular Rhythm
Respiratory: Crackles (Few bases), Rhonchi (n), Non-Labored Respirations, Accessory Resp Muscle Use (n) and Stridor (n)
GI: Soft, Non Distended and Non Tender
Neurology: Awake, Alert and No Motor Deficits
Skin: Warm, Good Color, Cyanosis (n) and Jaundice (n)
Labs/Micro/Reports
Lab Data
02/19/25 02:06
02/19/25 02:06
Laboratory Results
02/18/25
12:49
PT 16.8 H
INR 1.33
APTT 31.0
pH 7.36
pCO2 40
pO2 190 H
HCO3 22.6
O2 Delivery Level
--- NOTE | 2025-02-19 08:00 | PTCARENOTE ---
report received from previous RN, walking rounds done. resting in bed at time of assessment. AAOx3, A-paced on monitor. temp epicardial wires present. V wire not connected/on. HR 80. + peripheral pulses/no edema. 97% on 8LNC. midlfow. will wean as
able. CT x4 intact to -20cm wall suction drainag serosang. gutierrez draining clear yellow urine. Surgical sites stable, insulin gtt infusing per glycemic protocol. will continue to monitor.
--- NOTE | 2025-02-19 08:11 | W.PN.ANS.POP ---
Addendum entered and electronically signed by Mirela Berry CRNA 02/19/25 08:11:
remains paced and on Levophed gtt
Original Note:
Anesthesia Post Operative
- Anesthesia Post Op Note
Vital Signs Stable-See Nursing Note: Yes
Airway Patent: Yes
Adequate Pain Control: Yes
Change in Mental Status: No
Current Postoperative Nausea & Vomiting: No
Anesthesia Complications: No
General Anesthetic Recall: No
Unplanned Admission: No
Post Op Hydration Adequate: Yes
--- NOTE | 2025-02-19 08:21 | W.PN.CD ---
Addendum entered and electronically signed by Chanel Sanches MD 02/19/25 08:37:
while observing tele, he became hypotensive transiently again.
Will update his ef and r/o effusion with focused echo
Original Note:
Today's Communication / Plan
-
continue to wean levophed as able
amio for now
pacing prn
continue to monitor for rhythm improvement
Impression / Plan
-
I/P: 79M with HLD, CHRIS and an abnormal stress test which lead to cardiac catheterization which demonstrated MV disease including LM is here for CABG
Outpatient recharger: Dr. Beltran
CAD s/p CABG x 2 (THOMAS to LAD, GSV to OM & Atriclip) by Dr. Condon on 02/18/2025
-Post-EDMAR: Normal biventricular function; trace AI
-Bradycardia under GA requiring pacing, overnight with a lot of Ventricular ectopy that was resulting in hypotension, a lead increased
-Amiodarone started, hopefully this would be temporary
-Still requiring levophed
HTN, chronic, metoprolol on hold
Pre-diabetes, Hgba1c 5.9%
HLD, goal LDL < 70, LDL 120 (lowest over several years), consider increasing dose to 80mg, he will likely need Zetia as well
Former smoker, continued cessation recommended
Physical Exam
Vital Signs/Labs
Vital Signs
Temp Pulse Resp BP Pulse Ox
98.3 F 80 18 91/61 96
02/19/25 08:00 02/19/25 08:00 02/19/25 08:00 02/19/25 08:00 02/19/25 08:00
02/18/25 02/19/25 02/20/25
06:59 06:59 06:59
Actual Weight 177 lb 11.081 oz 186 lb 11.704 oz
02/19/25 02:06
02/19/25 02:06
PT 16.8 Sec (11.4-14.6) H 02/18/25 12:49
INR 1.33 02/18/25 12:49
APTT 31.0 Sec (23.4-35.0) 02/18/25 12:49
Magnesium 2.1 mg/dl (1.6-2.3) 02/19/25 02:06
Physical Exam
Constitutional: No acute distress
Cardiovascular: Rhythm & rate is regular, Pedal edema is absent, JVD pressure is normal, Systolic murmur absent and Diastolic murmur absent
Respiratory: Respiratory effort normal, Lungs clear to auscul., Wheeze Absent, Crackles Absent and Rhonchi Absent
Neuro/Psych: AO x 3
Data Reviewed
-
Date of Service: February 19, 2025
EKG: Other (tele: a paced, vpcs)
[2025-02-19 08:53] LABS: Glucose - Point of Care 78 mg/dl (70-99)
[2025-02-19] MEDS: LIDOCAINE 4% PATCH 1 PATCH TOPICAL (10:23)
[2025-02-19] MEDS: BACTROBAN 2% OINTMENT 1 APPLIC NASAL ×2 (10:23→19:59)
[2025-02-19] MEDS: FEOSOL 325 MG PO (10:24)
[2025-02-19] MEDS: SENOKOT-S 1 TABLET PO ×2 (10:24→19:58)
[2025-02-19] MEDS: PROTONIX 40 MG PO (10:24)
[2025-02-19] MEDS: MAGNESIUM OXIDE 500 MG PO ×2 (10:24→19:58)
[2025-02-19] MEDS: PLAVIX 75 MG PO (10:25)
[2025-02-19] MEDS: LOW STRENGTH ASPIRIN 81 MG PO (10:25)
[2025-02-19] MEDS: VITAMIN C 500 MG PO (10:26)
[2025-02-19 10:36] LABS: Glucose - Point of Care 92 mg/dl (70-99)
--- NOTE | 2025-02-19 11:55 | CM ---
Reviewed dk. Met with Mr. Ochoa to review discharge plans. He states is feeling okay. Prior to admission he resides with his spouse in a two story home with two steps to enter. He has a full flight of steps to get to bedroom/full bathroom. He
has a powder room on the first floor. Prior to admission he was independent with ambulation and adls. He has a CPAP Machine at home and no other DME. He has a prescription plan and uses [facility]. His spouse will be hime. Medical work-up in
progress. The discharge plan is to return home with his spouse and a home visit by the Transitional Care Nurse when medically stable.
--- NOTE | 2025-02-19 12:04 | CARDSERVLU ---
Echocardiogram with Lumason completed after protocol screening completed. Allergies verified.
Patent IV site: __Right wrist site clear ___
IV site flushed with 0.9% NaCl pre and post administration.
Diluted bolus method utilized to enhance visualization of ventricular smith.
Total volume given: _3___ mL
Patient tolerated all procedures well without complications.
[2025-02-19] MEDS: NSS IV (12:23)
[2025-02-19 12:31] LABS: Glucose - Point of Care 105 mg/dl (70-99)
[2025-02-19] MEDS: OFIRMEV 100 IV (13:00)
[2025-02-19] MEDS: TYLENOL PO (13:04)
--- NOTE | 2025-02-19 15:05 | PTCARENOTE ---
oob to chair with assistx2. tolerating transfer. Remains NSR and on 6L nc.
[2025-02-19] MEDS: LIPITOR 40 MG PO (19:59)
[2025-02-19] MEDS: REMOVE LIDOCAINE PATCH 1 PATCH REMOVE (19:59)
--- NOTE | 2025-02-19 21:02 | PTCARENOTE ---
received pt from previous rn. Pt AAOx3, drowsy with a flat affect, VSS,NSR per tele montior w/ frequent PACs/PVCs. temp epicardial wires set to 50/10/0.4. V wire not connected/on, trace edema noted, pox 93% on 5L NC, lungs diminished throughout.
CTx4 set to -20cm wall suction draining serosanguineous blood. no air leak/tidaling/crepitus noted. +bs, gutierrez draining clear yellow urine. stat lock applied. all surgical sites intact. RIJ cordis infusing KVO, PIV intact. plan of care discussed
questions encouraged.
[2025-02-19] MEDS: FLEXERIL 5 MG PO (21:49)
--- NOTE | 2025-02-19 22:25 | PTCARENOTE ---
pt occasionally being A-paced
[2025-02-19] MEDS: ROXICODONE 2.5 MG PO (23:34)
[2025-02-20] VITALS (20 sets, daily range): BP systolic 81–135; BP diastolic 39–95; PULSE 85; O2SAT 92–93; BMI 28.9
--- NOTE | 2025-02-20 00:15 | PTCARENOTE ---
NSR per tele monitor w/ occasional A-pacing. CTPA Tsilina adjusted temporary pacing HR increased to 60 from 50. assessment remains unchanged.
[2025-02-20 03:03] LABS: Blood Urea Nitrogen 31 mg/dl (9-20); Calcium 8.0 mg/dl (8.4-10.2); Carbon Dioxide 27 mmol/L (22-30); Chloride 106 mmol/L (98-107); Estimated Creatinine Clearance 50 ml/min; Glucose 120 mg/dl (70-99); Magnesium 2.3 mg/dl (1.6-2.3); Potassium 4.5 mmol/L (3.5-5.1); Sodium 135 mmol/L (135-145); eGFR > 60.00
[2025-02-20 03:10] LABS: Hematocrit 27.7 % (39.0-52.0); Hemoglobin 9.7 g/dL (13.0-18.0); Mean Corp Hgb Conc. 35.0 g/dL (33.0-37.0); Mean Corpuscular Volume 94.5 fL (80.0-94.0); Platelet Count 132 10^3/uL (130-400); Red Cell Dist. Width 13.1 % (11.5-14.5)
--- NOTE | 2025-02-20 03:42 | PTCARENOTE ---
labs obtained, NSR w/ occasional A pacing per tele monitor. Assessment remains unchanged.
[2025-02-20] MEDS: TYLENOL 1000 MG PO ×3 (05:38→21:47)
--- NOTE | 2025-02-20 05:51 | W.PN.CT ---
Today's Communication / Plan
-
-pod#2
-no significant issues overnight. Hemodynamically and neurologically intact, A&O x4
-CT outputs: 2 meds 75/305, 2 pleur 45/135 in 12/24 hrs
-Echo 02/19 is stalbe with nl EF, no pericardial effusion
-intermittent sinus bradycardia with PACs and a-pacing @ 50 bpm - maintain pw
-currently, pacer @ AAI @ 60 bmp backup
-low BP 80s-90s, maps >65. No drips. Will start Midodrine 2.5 tid
-UO 15-30 per hr-monitor. Owens is in- likely d/c today
-Cr 1.1 today (0.9 on 02/19 and 1.0 preop)
-wt is up from 177 preop to 186 on 02/19. Wt today is pending.
-encourage IS (upto 750 so far), OOB
Assessment / Plan
-
Assessment:
-S/P Median sternotomy/CABG x 2 (THOMAS to LAD, GSV to OM)/Endoscopic harvest/prep of RLE GSV/ELAA (40mm AtriClip), by Dr. Condon, 02/18/25, pod#2
-Multivessel CAD
-LVEF 60-65% per intraop EEG
-Mild MR
-HTN
-HLD
-Prediabetes (A1C 5.9)
-CHRIS (uses own CPAP)
-GERD
-KOYUK (uses bilateral hearing aids)
-Hx skin ca on face s/p excision
-Former tobacco use (quit 1999)
-Chronic back pain
-DJD
-Hx frequent UTI's
-S/p colonoscopy
-Acute postop blood loss/Anemia (stable without blood transfusion)
-Acute postop bradycardia with frequent PACs, symptomatic requiring temporary pacing-holding BB and Amio postop
-Acute postop atelectasis
-Acute postop hypovolemia with subsequent hypervolemia
-Acute postop EKG changes suspicious of acute pericarditis/has +rub
Echo 02/19/25:
-Normal biventricular size and systolic function without regional wall motion abnormality. LV ejection fraction is 65-70% by visual assessment. Normal appearing RV size and function.
-No significant valvular disease.
-Estimated pulmonary artery pressure of 25-30 mmHg. Assuming a right atrial pressure of 3 mmHg.
-No obvious pericardial effusion. IVC was not seen.
-Compared to January 18, 2025, no significant change.
Discussed patient care with: Nursing and Care Team
Subjective
Procedure
S/P Median sternotomy/CABG x 2 (THOMAS to LAD, GSV to OM)/Endoscopic harvest/prep of RLE GSV/ELAA (40mm AtriClip), by Dr. Condon, 02/18/25
-
Date of Service: February 20, 2025
Objective Data
-
PT 16.8 Sec (11.4-14.6) H 02/18/25 12:49
INR 1.33 02/18/25 12:49
APTT 31.0 Sec (23.4-35.0) 02/18/25 12:49
Vital Signs
Vital Signs
Temp Pulse Resp BP Pulse Ox
98.9 F 73 20 95/56 96
02/20/25 00:00 02/20/25 00:00 02/20/25 00:00 02/19/25 23:40 02/20/25 00:00
CT Intake/Output/Weight
02/19/25 02/19/25 02/20/25
06:59 18:59 06:59
Intake Total 441.5 / 1428.6 460.9 / 470.9 10 / 470.9
Output Total 885 / 1610 530 / 760 230 / 760
Balance -443.5 / -181.4 -69.1 / -289.1 -220 / -289.1
SaO2: 96
Physical Exam
-
General: Awake and AOx3
Cardiovascular: Regular rate & rhythm, No Murmurs and No Rub
Respiratory: Decreased Breath Sounds
Sternum: Stable
Incision: Clean, Dry and Intact
Extremities: Other (trace edema b/l. 2+ DPs b/l)
Abdomen: soft, nontender, nondistended, + decreased bowel sounds, denies nausea or abdominal pain
Data Reviewed
-
Lab Results: Results Reviewed
Medications: Active Meds Reviewed
Chest X-Ray: Report Reviewed and Image Reviewed
ECG: Report Reviewed and Image Reviewed
[2025-02-20] MEDS: FLEXERIL 5 MG PO (06:37)
[2025-02-20] MEDS: ROXICODONE 2.5 MG PO (06:37)
--- NOTE | 2025-02-20 08:35 | PTCARENOTE ---
assumed care of pt from previous shift RN, sinus rhythm on tele w occasional A pacing and PVCs, + peripheral pulses, no edema. Lungs diminished, pox 95% on 4L NC, coughing and deep breathing encouraged. +bs, tolerating PO intake, gutierrez removed, pt
is DTV. CTs removed as ordered. Surgical sites stable, right IJ cordis w KVO infusing, PIV flushes easily. Plan of care reviewed w the pt and questions encouraged.
--- NOTE | 2025-02-20 08:49 | W.PN.CD ---
Today's Communication / Plan
-
OOB ISB
Monitor tele
Impression / Plan
-
I/P: 79M with HLD, CHRIS and an abnormal stress test which lead to cardiac catheterization which demonstrated MV disease including LM is here for CABG
Outpatient motor vehicle parts interpreter: Dr. Beltran
CAD s/p CABG x 2 (THOMAS to LAD, GSV to OM & Atriclip) by Dr. Condon on 02/18/2025
-Post-EDMAR: Normal biventricular function; trace AI
-Bradycardia under GA requiring pacing, overnight with a lot of Ventricular ectopy that was resulting in hypotension, a lead increased
-Off pressors
- birefly required temp pacing overnight, monitor
- hypotension improving
HTN, chronic, metoprolol on hold now receiving midodrine
Pre-diabetes, Hgba1c 5.9%
HLD, goal LDL < 70, LDL 120 (lowest over several years), consider increasing dose to 80mg, he will likely need Zetia as well
Former smoker, continued cessation recommended
Echo: February 19 2025 CONCLUSIONS
TDS.
Normal biventricular size and systolic function without regional wall motion
abnormality.
LV ejection fraction is 65-70% by visual assessment.
Normal appearing RV size and function.
No significant valvular disease.
Estimated pulmonary artery pressure of 25-30 mmHg. Assuming a right atrial
pressure of 3 mmHg.
No obvious pericardial effusion. IVC was not seen.
Compared to January 18, 2025, no significant change.
Physical Exam
Vital Signs/Labs
Vital Signs
Temp Pulse Resp BP Pulse Ox
99.1 F 74 18 101/63 95
02/20/25 08:00 02/20/25 08:30 02/20/25 08:00 02/20/25 08:00 02/20/25 08:46
02/19/25 02/20/25 02/21/25
06:59 06:59 06:59
Actual Weight 186 lb 11.704 oz 184 lb 4.903 oz
02/20/25 02:30
02/20/25 02:30
PT 16.8 Sec (11.4-14.6) H 02/18/25 12:49
INR 1.33 02/18/25 12:49
APTT 31.0 Sec (23.4-35.0) 02/18/25 12:49
Magnesium 2.3 mg/dl (1.6-2.3) 02/20/25 02:30
Physical Exam
Constitutional: No acute distress and Comfortable
EENT: Anicteric
Cardiovascular: Rhythm & rate is regular and Pedal edema is absent
Respiratory: Respiratory effort normal
GI: Soft
Neuro/Psych: AO x 3
Data Reviewed
-
Date of Service: February 20, 2025
EKG: Tracing Personally Visualized and interpreted ( PACs)
Echo: Tracing Personally Visualized and interpreted
Labs: Labs Reviewed by me
[2025-02-20] MEDS: FEOSOL 325 MG PO (10:36)
[2025-02-20] MEDS: PROTONIX 40 MG PO (10:36)
[2025-02-20] MEDS: SENOKOT-S 1 TABLET PO ×2 (10:37→20:24)
[2025-02-20] MEDS: BACTROBAN 2% OINTMENT 1 APPLIC NASAL ×2 (10:37→20:25)
[2025-02-20] MEDS: PLAVIX 75 MG PO (10:37)
[2025-02-20] MEDS: MAGNESIUM OXIDE 500 MG PO ×2 (10:37→20:24)
[2025-02-20] MEDS: LIDOCAINE 4% PATCH 1 PATCH TOPICAL (10:37)
[2025-02-20] MEDS: VITAMIN C 500 MG PO (10:37)
[2025-02-20] MEDS: LOW STRENGTH ASPIRIN 81 MG PO (10:37)
[2025-02-20] MEDS: NSS 500 IV (10:38)
--- NOTE | 2025-02-20 11:20 | PN.CDI ---
CDI
- -
CDI:
Physician Documentation Request
Admit Date: 02/18/25 05:11
Dear Doctor Taurus/YUDELKA,
Please review the following and provide your response in the progress notes.
Clinical Indicators:
Pt admitted with CAD for CABG s/p CABG/SUBHA clip 02/18
Pt care note 02/18 @ 1639 ,' pt extubated to 6L NC, pox 97%...'
Pt care note 02/18 @ 2300,' POX 93% on 6LNC....'
Pt care note 02/19 @0300,' POX 97% on 15L midflow NC...'
Pt care note / @ 0800, ' 97% on 8LNC. midlfow...'
Pt care note 02/19 @ 2102,' pox 93% on 5L NC, lungs diminished throughout
Pt care note 02/20 @ 0835,' Lungs diminished, pox 95% on 4L NC, coughing and deep breathing encouraged....'
02/18/25
22:30 02/19/25
00:00 02/19/25
00:30
SaO2 86 89
Flow liters per minute # 13
02/19/25
02:00 02/19/25
04:00 02/19/25
07:00
Flow liters per minute # 15 14 10
02/19/25
08:00 02/19/25
12:00 02/19/25
13:30
SaO2 87
Flow liters per minute # 8
Nasal Cannula flow liters per minute 5
02/19/25
14:00 02/19/25
20:10 02/19/25
22:05
Flow liters per minute # 6
Nasal Cannula flow liters per minute 6 5
02/20/25
04:00 07/02/25
08:00
Flow liters per minute # 4
Nasal Cannula flow liters per minute 4
Clarify which of the following accurately represents the patient's respiratory status following surgery:
Acute pulmonary insufficiency (following surgery)
Acute Hypoxic respiratory failure
Other ( please specify)
Additional information for Pulmonary Insufficiency:
Consider when patients require ad terminal makeup operator oxygen therapy postoperatively
Weaned off oxygen initially then requiring supplemental oxygen
No other definitive diagnosis to support the need for oxygen (COPD exac, CHF etc.)
Unable to wean from vent
When criteria for respiratory failure not present
May extend stay or require additional resources; may need home O2
Additional information for Respiratory Failure:
Recognized criteria for Respiratory Failure (Source: [facility] Hospitalist May/Jun 2013)
ABGs: (1 or more) Symptoms Indicate:
1. p)2 <60 or RA SPO2 <91% on RA 1. Tachypnea, SOB, dyspnea 1. Type as:
2. pCO2 50 and pH <7.35 2. Use of accessory muscles a. Hypoxic
3. pO2 decrease of pCO2 increase by 3. Pallor or cyanosis b. Hypercapnic
10 mmHg from baseline if known 4. Anxiety or restlessness 2. If due to procedure or due to another cause
5. Unable to speak in full sentences
Use of terms such as suspected, likely, concern for, or probable (associated with a specific diagnosis that is being evaluated, monitored, or treated as if it exists) are acceptable and can be coded in the inpatient setting, when documented at the
time of discharge.
Thank you,
Arianna Fulton RN
CDI Specialist
[facility]
Please use your independent medical judgment in providing your response.
--- NOTE | 2025-02-20 11:31 | PN.CDI ---
CDI
- -
CDI:
Physician Documentation Request
Admit Date: 02/18/25 05:11
Dear Doctor Taurus /YUDELKA,
Please review the following and provide your response in the progress notes.
Clinical Indicators:
Pt admitted with CAD for CABG s/p CABG/SUBHA clip 02/18
CT surgery note 02/20, ' -Cr 1.1 today (0.9 on 02/19 and 1.0 preop)...'
Cardiology note 02/19, ' -Bradycardia under GA requiring pacing, overnight with a lot of Ventricular ectopy that was resulting in hypotension...'
02/18/25 02/20/25
12:49 02:30
Creatinine 0.8 1.1
Clarify which of the following accurately represents the patient's renal status:
ELO
Bump in creatinine only
Other ( please specify)
Criteria for ELO*
1 Increase in serum creatinine by > or = to 0.3 mg/dL (> or = to 26.5 micromol/L) within 48 hours, OR
2 Increase in serum creatinine to > or = to 1.5 times baseline, which is known or presumed to have occurred within 7 days, OR
3 Urine volume < 0.5 nL/kg/hour for six hours
Use of terms such as suspected, likely, concern for, or probable (associated with a specific diagnosis that is being evaluated, monitored, or treated as if it exists) are acceptable and can be coded in the inpatient setting, when documented at the
time of discharge.
Thank you,
Arianna Fulton RN
CDI Specialist
[facility]
Please use your independent medical judgment in providing your response.
*Source: Kidney Disease: Improving Global Outcomes (KDIGO) 2012
--- NOTE | 2025-02-20 12:47 | PTCARENOTE ---
assisted pt w ambulating to bathroom from chair, pt voided 100 ml john, PVR scan 0ml.
--- NOTE | 2025-02-20 16:17 | CM ---
Reviewed chart. Met with Mr. Ochoa to review discharge plans. He states is feeling tired. We briefly review a home visit with the Transitional Care Nurse. He ambulated in the hallway today. Prior to admission he resides with his spouse in a two
story home with two steps to enter. He has a full flight of steps to get to bedroom/full bathroom. He has a powder room on the first floor. Prior to admission he was independent with ambulation. He has a CPAP Machine att home. He has a
prescription plan and uses [facility]. His spiuse will be home. Medical work-up in progress. The discharge plan is to return home with his spouse and a home visit by the Transitional Care Nurse when medically stable.
--- NOTE | 2025-02-20 17:15 | PTCARENOTE ---
assisted pt w ambulating in hallway using rolling walker, tolerated well. VSS, sinus rhythm on tele.
--- NOTE | 2025-02-20 20:00 | PTCARENOTE ---
Assumed care of patient at 1900. Patient found oob in chair at time of assessment. Patient is AOx4, follows commands appropriately, moves all extremities. Lung sounds are clear and equal bilaterally, saO2 94% on 4L, IS 750, wears CPAP HS. Heart
sounds are audible, patient is SR with PACs and PVCs frequently, normal palpable pulses, and no observable edema. Patient has A+V wires, v wires insulated, A to box, DDD settings 40/10. Patient has active BS in all four quadrants, reports gas pain
CT PA notified for mylicon, voiding in the bathroom. There is a sternal incision with aquacell dressing that is CDI, ABD dressing over CT wounds that is CDI, R groin puncture approx with surg adhesive PEPE, and RLE incision approx with surg adesive
PEPE. Patient has R IJ cordis receiving KVO and 20G in R wrist available for intermittent infusion. VSS. Call boswell within reach.
[2025-02-20] MEDS: MYLICON 160 MG PO (20:24)
[2025-02-20] MEDS: REMOVE LIDOCAINE PATCH 1 PATCH REMOVE (20:25)
[2025-02-20] MEDS: LIPITOR 40 MG PO (21:47)
[2025-02-20] MEDS: REGLAN 10 MG PO (21:47)
[2025-02-21] VITALS (15 sets, daily range): BP systolic 87–120; BP diastolic 57–71; PULSE 86–88; O2SAT 97–98; BMI 28.8
--- NOTE | 2025-02-21 00:16 | PTCARENOTE ---
Patient reassessed. Remains SR with PACs/PVCs. Patient given reglan for pain 2/2 to constipation. Placed on CPAP O2 increased to 6L d/t desats while on CPAP.
--- NOTE | 2025-02-21 03:09 | W.PN.CT ---
Today's Communication / Plan
-
-pod #3
-no significant issues overnight
-no significant bradycardia or pauses, in nsr high 80s-low 90s with PACs. Holding BB and Amio
-pw in place, monitor rhythm
-avoiding narcotics, off Gabapentin
-on Midodrine for hypotension- wean as tolerated
-current meds (ASA, Plavix, Lipitor, Midodrine, Feosol, Protonix)
-encourage IS, ambulate
Assessment / Plan
-
Assessment:
-S/P Median sternotomy/CABG x 2 (THOMAS to LAD, GSV to OM)/Endoscopic harvest/prep of RLE GSV/ELAA (40mm AtriClip), by Dr. Condon, 02/18/25, pod#3
-Multivessel CAD
-LVEF 60-65% per intraop EEG
-Mild MR
-HTN
-HLD
-Prediabetes (A1C 5.9)
-CHRIS (uses own CPAP)
-GERD
-[place] (uses bilateral hearing aids)
-Hx skin ca on face s/p excision
-Former tobacco use (quit 1999)
-Chronic back pain
-DJD
-Hx frequent UTI's
-S/p colonoscopy
-Acute postop blood loss/Anemia (stable without blood transfusion)
-Acute postop bradycardia with frequent PACs, symptomatic requiring temporary pacing-holding BB and Amio postop
-Acute postop atelectasis
-Acute postop hypovolemia with subsequent hypervolemia
-Acute postop EKG changes suspicious of acute pericarditis/has +rub
-Acute postop pulmonary insufficiency
-Acute postop bump in Cr only
Echo 02/19/25:
-Normal biventricular size and systolic function without regional wall motion abnormality. LV ejection fraction is 65-70% by visual assessment. Normal appearing RV size and function.
-No significant valvular disease.
-Estimated pulmonary artery pressure of 25-30 mmHg. Assuming a right atrial pressure of 3 mmHg.
-No obvious pericardial effusion. IVC was not seen.
-Compared to January 18, 2025, no significant change.
Discussed patient care with: Nursing and Care Team
Subjective
Procedure
S/P Median sternotomy/CABG x 2 (THOMAS to LAD, GSV to OM)/Endoscopic harvest/prep of RLE GSV/ELAA (40mm AtriClip), by Dr. Condon, 02/18/25
-
Date of Service: February 21, 2025
Objective Data
-
PT 16.8 Sec (11.4-14.6) H 02/18/25 12:49
INR 1.33 02/18/25 12:49
APTT 31.0 Sec (23.4-35.0) 02/18/25 12:49
Vital Signs
Vital Signs
Temp Pulse Resp BP Pulse Ox
98.3 F 89 20 135/88 96
02/20/25 20:00 02/21/25 02:00 02/20/25 20:00 02/20/25 22:04 02/21/25 02:00
CT Intake/Output/Weight
02/20/25 02/20/25 02/21/25
06:59 18:59 06:59
Intake Total 10 / 480.9 150 / 150
Output Total 460 / 1010 440 / 840 400 / 840
Balance -450 / -529.1 -290 / -690 -400 / -690
SaO2: 96
[2025-02-21 03:38] LABS: Hematocrit 27.0 % (39.0-52.0); Hemoglobin 9.5 g/dL (13.0-18.0); Mean Corp Hgb Conc. 35.2 g/dL (33.0-37.0); Mean Corpuscular Volume 94.7 fL (80.0-94.0); Platelet Count 127 10^3/uL (130-400); Red Cell Dist. Width 12.9 % (11.5-14.5)
[2025-02-21 04:00] LABS: Blood Urea Nitrogen 26 mg/dl (9-20); Calcium 8.2 mg/dl (8.4-10.2); Carbon Dioxide 27 mmol/L (22-30); Chloride 106 mmol/L (98-107); Estimated Creatinine Clearance 69 ml/min; Glucose 110 mg/dl (70-99); Magnesium 2.4 mg/dl (1.6-2.3); Potassium 4.1 mmol/L (3.5-5.1); Sodium 136 mmol/L (135-145); eGFR > 60.00
[2025-02-21] MEDS: TYLENOL 1000 MG PO ×3 (05:42→21:50)
--- NOTE | 2025-02-21 07:48 | PTCARENOTE ---
Patient reassessed. VSS. Patient wore CPAP for approx 4 hours before being unable to tolerate. Back on 4L via NC. Remains SR with PACs/PVCs occasional runs of vtach. AM hygine care provided. AM labs obtained. Successful BM.
--- NOTE | 2025-02-21 08:02 | W.PN.CD ---
Today's Communication / Plan
-
ambulate
holding bb while monitoring bp, hopefully resume prior to discharge
Impression / Plan
-
I/P: 79M with HLD, CHRIS and an abnormal stress test which lead to cardiac catheterization which demonstrated MV disease including LM is here for CABG
Outpatient [employer] crew lead: Dr. Beltran
CAD s/p CABG x 2 (THOMAS to LAD, GSV to OM & Atriclip) by Dr. Condon on 02/18/2025
-Post-EDMAR: Normal biventricular function; trace AI
-Bradycardia under GA requiring pacing, initial overnight with a lot of Ventricular ectopy that was resulting in hypotension, a lead increased and amiodarone started
-this has improved, now sinus with pvcs
-Off pressors
-no longer pacing.
HTN, chronic, metoprolol on hold briefly received midodrine
Pre-diabetes, Hgba1c 5.9%
HLD, goal LDL < 70, LDL 120 (lowest over several years), consider increasing dose to 80mg, he will likely need Zetia as well
Former smoker, continued cessation recommended
Subjective
worried about having a BM otherwise no complaint
Echo: February 19 2025 CONCLUSIONS
TDS.
Normal biventricular size and systolic function without regional wall motion
abnormality.
LV ejection fraction is 65-70% by visual assessment.
Normal appearing RV size and function.
No significant valvular disease.
Estimated pulmonary artery pressure of 25-30 mmHg. Assuming a right atrial
pressure of 3 mmHg.
No obvious pericardial effusion. IVC was not seen.
Compared to January 18, 2025, no significant change.
Physical Exam
Vital Signs/Labs
Vital Signs
Temp Pulse Resp BP Pulse Ox
98.0 F 86 18 113/60 98
02/21/25 03:00 02/21/25 07:00 02/21/25 03:00 02/21/25 05:44 02/21/25 05:30
02/20/25 02/21/25 02/22/25
06:59 06:59 06:59
Actual Weight 184 lb 4.903 oz 183 lb 13.848 oz
02/21/25 03:05
02/21/25 03:05
PT 16.8 Sec (11.4-14.6) H 02/18/25 12:49
INR 1.33 02/18/25 12:49
APTT 31.0 Sec (23.4-35.0) 02/18/25 12:49
Magnesium 2.4 mg/dl (1.6-2.3) H 02/21/25 03:05
Physical Exam
Constitutional: No acute distress
Cardiovascular: Rhythm & rate is regular, Pedal edema is absent, JVD pressure is normal, Systolic murmur absent and Diastolic murmur absent
Respiratory: Respiratory effort normal, Lungs clear to auscul., Wheeze Absent, Crackles Absent and Rhonchi Absent
Neuro/Psych: AO x 3
Data Reviewed
-
Date of Service: February 21, 2025
Medical Decision Making: Review of Case with other Provider (D/w CT surgery team: hoping to get bb back on soon)
--- NOTE | 2025-02-21 08:30 | PTCARENOTE ---
Assumed care of patient. Walking rounds completed with previous RN. Pt assessed while he was sitting in the chair. Pt alert and oriented x4. Flat affect. Rates sternal pain 5/10 and SHEPARD with walking. Denies pain at rest. Denies nausea. KRAFT with
equal strength throughout. Ambulated in the kirk with RW and 1 assist, pt tolerated. SR with frequent PACs and PVCs on tele with rates in the 80s. BP 100/60. Bilateral radial and DP pulses palpable. Trace bilateral hand edema. Epicardial AV wires
intact to temp pacer box, no pacing noted. POX 100% on 4L NC, titrated to 2L NC, POX 93%. Lungs diminished in the bases, IS encouraged-1000mL achieved. Occasional dry, nonproductive cough. Abdomen soft, round, nontender. +BS. +gas per patient. Pt
voided john urine in the hat. Sternal incision covered with Aquacel-CDI. Old chest tube sites covered, CDI. Right groin puncture site approximated, PEPE. Right SVG harvest site approximated, STAFF COMMAND AND CONTROL OFFICER. Right IJ cordis intact. Right wrist 20g PIV intact.
See MAR for medication administration. See worklist for complete nursing assessment. Plan of care reviewed and patient in agreement.
[2025-02-21] MEDS: VITAMIN C 500 MG PO (08:43)
[2025-02-21] MEDS: FEOSOL 325 MG PO (08:43)
[2025-02-21] MEDS: SENOKOT-S 1 TABLET PO ×2 (08:43→19:56)
[2025-02-21] MEDS: PACERONE 200 MG PO ×3 (08:43→21:51)
[2025-02-21] MEDS: PLAVIX 75 MG PO (08:43)
[2025-02-21] MEDS: LIDOCAINE 4% PATCH 1 PATCH TOPICAL (08:43)
[2025-02-21] MEDS: MAGNESIUM OXIDE 500 MG PO ×2 (08:43→19:56)
[2025-02-21] MEDS: LOW STRENGTH ASPIRIN 81 MG PO (08:43)
[2025-02-21] MEDS: BACTROBAN 2% OINTMENT 1 APPLIC NASAL ×2 (08:43→19:56)
[2025-02-21] MEDS: NSS IV (09:00)
[2025-02-21] MEDS: PROTONIX 40 MG PO (09:02)
[2025-02-21] MEDS: ZOFRAN 4 MG IV (09:17)
--- NOTE | 2025-02-21 11:19 | CM ---
Addendum entered by France Jarqiun 02/21/25 15:33:
[facility] can accept Mr. Ochoa for admission and [facility] [place] will have a bed on Tuesday if medically stable. Met with MrJoseline and Mrs. Ochoa and his daughter to review discharge plans.
Reviewed plan is to [facility] [place]. They are agreeable to the plan. The report number is ([phone]). Will need to contact Jessica at [facility] on Tuesday if he ready for transfer to [facility], so she con alert the unit. Jessica
phone number is ([phone]). Medical work-up in progress. The discharge plan is to [facility] [place] on Tuesday if medically stable.
Original Note:
Reviewed chart and with his nurse. Therapy is recommending Acute Rehab. Met with Mr. Ochoa to review discharge plans- Acute Rehab. We reviewed [facility] at [place]. He will think about acute rehab. and review with his spouse. He declined
my offer to review with his spouse. [facility] call to [facility] [place] Liaison to make the referral. Referral sent. Await decision regarding acceptance and bed availability. Medical work-up in progress. The [facility] if [facility] for admission and bed available when medically stable.
--- NOTE | 2025-02-21 11:30 | PTCARENOTE ---
Pt reassessed. SR with frequent PAC and PVCs, & bigeminy. BP 113/69. POX 90% on 1L NC. Surgical sites stable. No acute changes from previous assessment.
[2025-02-21] MEDS: TOPROL XL 12.5 MG PO (12:32)
[2025-02-21] MEDS: LASIX 20 MG IV (12:32)
--- NOTE | 2025-02-21 15:30 | PTCARENOTE ---
Pt reassessed. SR with frequent PVCs with rates in the 80s. BP 95/65. POX 91% on RA. Surgical sites stable. Per case management, pt plan to go to [facility] Tuesday. Pt and family agreeable.
--- NOTE | 2025-02-21 18:30 | PTCARENOTE ---
Pt assisted to bed. Right IJ cordis d/c per orders. Hemostasis achieved. Pt assisted OOB to chair for dinner.
[2025-02-21] MEDS: REMOVE LIDOCAINE PATCH 1 PATCH REMOVE (20:00)
--- NOTE | 2025-02-21 20:30 | PTCARENOTE ---
Assumed care of patient at 1900. Patient alert and oriented, flat affect. Follows all commands. Denies pain at this time. OOB to chair, ambulated to bathroom with 1 person assist, and rolling walker. NSR on monitor BP stable. Pulses palatable.
Trace edema, Lungs diminished at bases, 92% on room air. Bowels sounds present, passing gas. Voiding without issue clear yellow urine. CHG bath completed, see assessment for full details in worklist.
[2025-02-21] MEDS: LIPITOR 40 MG PO (21:50)
[2025-02-22] VITALS (15 sets, daily range): BP systolic 103–123; BP diastolic 60–75; PULSE 88; BMI 28.3
--- NOTE | 2025-02-22 01:00 | PTCARENOTE ---
Assumed care of pt ~0015. Pt AAOx3. Follows commands appropriately. SR to on the tele monitor. HR 70-80s. Audible heart tones. Temporary epicardial A/V wires insulated. BP stable. Palpable pulses throughout. Trace B/L hand edema. Pt placed on 2 L
NC. POX 96%. Lungs sounds diminished in B/L base. Occasional harsh cough. Deep breathing and IS encouraged. CT dressing C/D/I. Abdomen round. +BSx4. Pt voiding. All surgical sites stable. PIVx1 intact. Pt assisted OOB to the bathroom and then
repositioned back in bed. See worklist for full nursing assessment. Call boswell within reach.
--- NOTE | 2025-02-22 02:33 | W.PN.CT ---
Addendum entered and electronically signed by Alberto Ghosh MD 02/22/25 08:25:
Looks much better this morning, off oxygen weight coming down nicely. Discharge to [facility] tomorrow has a bed.
Original Note:
Today's Communication / Plan
-
pod #4
- BP stable after Midodrine DC'd
- continue low dose Toprol XL, Amiodarone, ASA, Plavix, Lipitor
- awaiting bed availability @ [facility]-expected DC on 02/23
- CUT wires prior to DC
Assessment / Plan
-
Assessment:
-S/P Median sternotomy/CABG x 2 (THOMAS to LAD, GSV to OM)/Endoscopic harvest/prep of RLE GSV/ELAA (40mm AtriClip), by Dr. Condon, 02/18/25, pod#4
-Multivessel CAD
-LVEF 60-65% per intraop EEG
-Mild MR
-HTN
-HLD
-Prediabetes (A1C 5.9)
-CHRIS (uses own CPAP)
-GERD
-[place] (uses bilateral hearing aids)
-Hx skin ca on face s/p excision
-Former tobacco use (quit 1999)
-Chronic back pain
-DJD
-Hx frequent UTI's
-S/p colonoscopy
-Acute postop blood loss/Anemia (stable without blood transfusion)
-Acute postop bradycardia with frequent PACs, symptomatic requiring temporary pacing-holding BB and Amio postop
-Acute postop atelectasis
-Acute postop hypovolemia with subsequent hypervolemia
-Acute postop EKG changes suspicious of acute pericarditis/has +rub
-Acute postop pulmonary insufficiency
-Acute postop bump in Cr only
Echo 02/19/25:
-Normal biventricular size and systolic function without regional wall motion abnormality. LV ejection fraction is 65-70% by visual assessment. Normal appearing RV size and function.
-No significant valvular disease.
-Estimated pulmonary artery pressure of 25-30 mmHg. Assuming a right atrial pressure of 3 mmHg.
-No obvious pericardial effusion. IVC was not seen.
-Compared to January 18, 2025, no significant change.
Discussed patient care with: Nursing and Care Team
Subjective
Procedure
S/P Median sternotomy/CABG x 2 (THOMAS to LAD, GSV to OM)/Endoscopic harvest/prep of RLE GSV/ELAA (40mm AtriClip), by Dr. Condon, 02/18/25
-
Date of Service: February 22, 2025
Objective Data
-
PT 16.8 Sec (11.4-14.6) H 02/18/25 12:49
INR 1.33 02/18/25 12:49
APTT 31.0 Sec (23.4-35.0) 02/18/25 12:49
Vital Signs
Vital Signs
Temp Pulse Resp BP Pulse Ox
98.3 F 81 18 107/61 97
02/22/25 00:34 02/22/25 00:34 02/22/25 00:34 02/22/25 00:34 02/22/25 00:45
CT Intake/Output/Weight
02/21/25 02/21/25 02/22/25
06:59 18:59 06:59
Intake Total 520 / 570 50 / 570
Output Total 600 / 1040 1400 / 1500 100 / 1500
Balance -600 / -890 -880 / -930 -50 / -930
SaO2: 97
Physical Exam
-
General: AOx3
Cardiovascular: Regular rate & rhythm, No Murmurs, No Rub and No Gallop
Respiratory: Clear
Sternum: Stable
Incision: Dressing Intact
Extremities: No Edema and No Erythema
Data Reviewed
-
Lab Results: Results Reviewed
Medications: Active Meds Reviewed
Chest X-Ray: Report Reviewed and Image Reviewed
ECG: Report Reviewed and Image Reviewed
--- NOTE | 2025-02-22 04:14 | PTCARENOTE ---
No acute changes in assessment. Pt is SR / occasional PVCs on the monitor. HR 80s. HR increases to 90s when OOB to the bathroom. Pt is 90-94 on 2 L NC. All surgical sites stable. Labs drawn and sent. Pt OOB to void in the bathroom w/ use of rolling
walker and then repositioned back in bed. Call boswell within reach.
[2025-02-22 04:52] LABS: Blood Urea Nitrogen 23 mg/dl (9-20); Calcium 8.3 mg/dl (8.4-10.2); Carbon Dioxide 28 mmol/L (22-30); Chloride 105 mmol/L (98-107); Estimated Creatinine Clearance 69 ml/min; Glucose 107 mg/dl (70-99); Magnesium 2.5 mg/dl (1.6-2.3); Potassium 4.2 mmol/L (3.5-5.1); Sodium 136 mmol/L (135-145); eGFR > 60.00
[2025-02-22 04:55] LABS: Hematocrit 26.6 % (39.0-52.0); Hemoglobin 9.3 g/dL (13.0-18.0); Mean Corp Hgb Conc. 35.0 g/dL (33.0-37.0); Mean Corpuscular Volume 94.3 fL (80.0-94.0); Platelet Count 157 10^3/uL (130-400); Red Cell Dist. Width 12.7 % (11.5-14.5)
[2025-02-22] MEDS: TYLENOL 1000 MG PO ×3 (05:56→22:02)
--- NOTE | 2025-02-22 07:45 | PTCARENOTE ---
Resumed care of patient. Pt assessed while he was sitting in the chair. Pt alert and oriented x4. Pt rates sternal pain 5/10 when walking. Uses rolling walker to ambulate into the bathroom with 1 assist. Assisted back to the chair. NSR on tele with
rates in the 80s. BP 106/66. Heart tones audible. Bilateral radial and DP pulses palpable. No edema noted. Epicardial AV wires insulated. POX 92% on RA. Lungs diminished in the bases. IS encouraged-1250ml. Occasional dry, nonproductive cough.
Abdomen soft, nontender. +BS. Pt voided clear yellow urine in the toilet. Tolerating diet. Sternal incision covered with Aquacel-CDI. Old chest tube sites covered, CDI. Right groin puncture PEPE. Right SVG harvest approximated, DIRECTOR OF SPA AND GUEST EXPERIENCE. Right wrist 20g
PIV intact. See MAR for medication administration. See worklist for complete nursing assessment. Pt ambulated in the kirk with RW and RN. Plan of care reviewed.
[2025-02-22] MEDS: BACTROBAN 2% OINTMENT 1 APPLIC NASAL (09:32)
[2025-02-22] MEDS: LASIX 20 MG IV (09:33)
[2025-02-22] MEDS: PLAVIX 75 MG PO (09:33)
[2025-02-22] MEDS: LOW STRENGTH ASPIRIN 81 MG PO (09:33)
[2025-02-22] MEDS: PROTONIX 40 MG PO (09:33)
[2025-02-22] MEDS: FEOSOL 325 MG PO (09:33)
[2025-02-22] MEDS: PACERONE 200 MG PO ×3 (09:33→22:02)
[2025-02-22] MEDS: VITAMIN C 500 MG PO (09:33)
[2025-02-22] MEDS: SENOKOT-S 1 TABLET PO (09:33)
[2025-02-22] MEDS: TOPROL XL 12.5 MG PO (09:33)
[2025-02-22] MEDS: LIDOCAINE 4% PATCH 1 PATCH TOPICAL (09:34)
[2025-02-22] MEDS: MAGNESIUM OXIDE PO (09:34)
[2025-02-22] MEDS: NSS IV (09:45)
--- NOTE | 2025-02-22 13:19 | PTCARENOTE ---
Pt reassessed. NSR with rates in the 70s-90s. BP104/62. POX 93% on RA. Surgical sites stable. Ambulating in the room with RW and 1 assist. No other acute changes.
--- NOTE | 2025-02-22 16:00 | PTCARENOTE ---
Pt reassessed. NSR with rates in the 80s. BP 107/66. POX 90% on RA. Surgical sites stable. Assisted OOB to the bathroom to urinate, assisted to chair. Needs frequent reminders regarding sternal precautions and importance of IS.
[2025-02-22] MEDS: SENOKOT-S PO (20:47)
[2025-02-22] MEDS: REMOVE LIDOCAINE PATCH 1 PATCH REMOVE (20:47)
[2025-02-22] MEDS: CALCIUM GLUCONATE 130 MG IV (21:34)
--- NOTE | 2025-02-22 22:00 | PTCARENOTE ---
Patient received OOB in chair. Patient A+A+Ox3. No neurological deficits noted. Patient assisted to bathroom with assist x1 and use of rolling walker. Voided 150 ml yellow urine. Washed face and brushed teeth. Patient assisted to bed. New
peripheral IV #20P placed right AC. PA ordered Calcium Gluconate 3,000mg/130ml IV over 1hr. Room air. SpO2 91%. Patient placed on O2 2L via NC HS. SpO2 95-97%. Lungs diminished at bases. No adventitious breath sounds noted. No c/o SOB. Chest
tube dressing intact. Occasional nonproductive cough. Sinus Rhythm. Heart rate 70's. Blood pressure 123/69 (75). AV Wires - Insulated. Normoactive bowel sounds. No BM. No c/o nausea. No vomiting. Voiding without difficulty. Positive,
palpable pulses. Sternal dressing intact. Right groin puncture site intact - Ecchymotic. Right lower extremity incision intact. Assessment as documented.
[2025-02-22] MEDS: REFRESH EYE DROPS (PF) 1 DROPS OPHTH (22:02)
[2025-02-22] MEDS: LIPITOR 40 MG PO (22:02)
--- NOTE | 2025-02-23 00:30 | PTCARENOTE ---
Patient assisted to bathroom with assist x1 and use of rolling walker. Voided 100 ml yellow urine. Back to bed. Patient now sleeping. Assessment as documented.
[2025-02-23 04:40] VITALS: BP 130/67
--- NOTE | 2025-02-23 05:00 | PTCARENOTE ---
Patient A+A+Ox3. No neurological deficits noted. AM lab work collected and sent. Patient given CHG bath and linens changed. Chest tube dressing changed. Tape love noted on right lateral abdomen and left lateral abdomen - PA made aware.
Patient to bathroom and back to bed. Standing scale weight 81.2 kg. Assessment/Interventions as documented.
--- NOTE | 2025-02-23 05:09 | W.PN.CT ---
Today's Communication / Plan
-
Plan:
-No major issues overnight. Hemodynamically and neurologically intact
-Bp soft postop necessitating Midodrine. BP improved, midodrine d/c'd
-Tolerating low dose BB (Toprol XL 12.5 mg Daily)
-Cont. current meds (ASA, Plavix, Lipitor, Amiodarone, Toprol XL)
-Holding mag oxide, mg 2.4
-Pt uses O2 with CPAP @ home
-Encourage use of IS
-D/C temporary PW (cut)
-[facility] placement today
Assessment / Plan
-
Assessment:
-S/P Median sternotomy/CABG x 2 (THOMAS to LAD, GSV to OM)/Endoscopic harvest/prep of RLE GSV/ELAA (40mm AtriClip), by Dr. Condon, 02/18/25, pod#5
-Multivessel CAD
-LVEF 60-65% per intraop EEG
-Mild MR
-HTN
-HLD
-Prediabetes (A1C 5.9)
-CHRIS (uses own CPAP)
-GERD
-[place] (uses bilateral hearing aids)
-Hx skin ca on face s/p excision
-Former tobacco use (quit 1999)
-Chronic back pain
-DJD
-Hx frequent UTI's
-S/p colonoscopy
-Acute postop blood loss/Anemia (stable without blood transfusion)
-Acute postop bradycardia with frequent PACs, symptomatic requiring temporary pacing-holding BB and Amio postop
-Acute postop atelectasis
-Acute postop hypovolemia with subsequent hypervolemia
-Acute postop EKG changes suspicious of acute pericarditis/has +rub
-Acute postop pulmonary insufficiency
-Acute postop bump in Cr only
Echo 02/19/25:
-Normal biventricular size and systolic function without regional wall motion abnormality. LV ejection fraction is 65-70% by visual assessment. Normal appearing RV size and function.
-No significant valvular disease.
-Estimated pulmonary artery pressure of 25-30 mmHg. Assuming a right atrial pressure of 3 mmHg.
-No obvious pericardial effusion. IVC was not seen.
-Compared to January 18, 2025, no significant change.
Discussed patient care with: Cardiology, Nursing, Respiratory Therapy, Pharmacy and Care Team
Subjective
-
Date of Service: February 23, 2025
Pt c/o mild incisional pain, otherwise feels well
Objective Data
-
Lab Results
02/22/25 03:58
PT 16.8 Sec (11.4-14.6) H 02/18/25 12:49
INR 1.33 02/18/25 12:49
APTT 31.0 Sec (23.4-35.0) 02/18/25 12:49
Vital Signs
Vital Signs
Temp Pulse Resp BP Pulse Ox
98.0 F 94 16 112/66 97
02/22/25 21:45 02/23/25 03:00 02/22/25 21:45 02/22/25 22:02 02/23/25 00:00
CT Intake/Output/Weight
02/22/25 02/22/25 02/23/25
06:59 18:59 06:59
Intake Total 50 / 570 680 / 1020 340 / 1020
Output Total 650 / 2050 600 / 1025 425 / 1025
Balance -600 / -1480 80 / -5 -85 / -5
SaO2: 97 (2L)
Physical Exam
-
General: Awake, Oriented and AOx3
Cardiovascular: Regular rate & rhythm, No Murmurs, No Rub and No Gallop
Respiratory: Decreased Breath Sounds (at bases, otherwise clear)
Sternum: Stable
Incision: Clean, Dry, Intact and Dressing Intact
Extremities: Other (+trace edema)
Data Reviewed
-
Lab Results: Results Reviewed
Medications: Active Meds Reviewed
Chest X-Ray: Report Reviewed and Image Reviewed
ECG: Report Reviewed and Image Reviewed
[2025-02-23 05:20] VITALS: BMI 28.1
[2025-02-23] MEDS: TYLENOL 1000 MG PO (05:23)
[2025-02-23 05:52] LABS: Blood Urea Nitrogen 23 mg/dl (9-20); Calcium 8.6 mg/dl (8.4-10.2); Carbon Dioxide 28 mmol/L (22-30); Chloride 105 mmol/L (98-107); Estimated Creatinine Clearance 69 ml/min; Glucose 109 mg/dl (70-99); Magnesium 2.4 mg/dl (1.6-2.3); Potassium 4.2 mmol/L (3.5-5.1); Sodium 137 mmol/L (135-145); eGFR > 60.00
--- NOTE | 2025-02-23 08:00 | W.PN.UPDATE ---
Update Note
Progress Note Update
AV wires cut at the skin after gentle traction due to surgeon preference. Chest tube sutures removed.
--- NOTE | 2025-02-23 08:28 | W.DCSUMMARY ---
Discharge Summary
Discharge Data
Date of Admission: 02/18/25
Date of Discharge: 02/23/25
Total time spent discharging patient (in min): 45
-
Pending Results: No
Hospital Course
Primary care physician: Gabo Gomez MD
Outpatient laborer [facility]: Jethro Beltran MD
Inpatient consultants: Cardiology, pie icer machine
Procedures:
1. Coronary artery bypass grafting x 2, AZEVEDO�LAD, SVG�OM, left atrial appendage exclusion 40 mm atrial clip, Dr. Condon
Primary Diagnosis:
Multivessel coronary artery disease
Secondary Diagnoses:
Acute postop blood loss anemia
Acute postop bradycardia with frequent PACs requiring temporary pacing
Acute postop atelectasis
Acute postop pericarditis
Acute postop pulmonary insufficiency
Mild mitral irritation
Hypertension
Hyperlipidemia
Prediabetes
Obstructive sleep apnea
Gastroesophageal reflux disease
Hard of hearing
History of skin cancer
History of tobacco abuse
Chronic back pain
Degenerative joint disease
History of frequent UTIs
HPI: Patient was seen and evaluated by Dr. Condon in the office regarding his multivessel coronary disease. After appropriate preoperative restratification and testing he was deemed an appropriate surgical candidate. He was admitted electively to
undergo the procedure.
Hospital course:
Patient underwent coronary artery bypass grafting x 2 with AZEVEDO�LAD, SVG�OM, exclusion of left atrial appendage by Dr. Condon on 02/18/2025. Please refer to separately dictated operative report for complete details. Postoperatively the patient
progressed well. He was extubated per usual postop protocol around 1700. He was wean as able from vasoactive medications
Postoperative day #1: Patient remains in sinus rhythm with frequent PACs. Patient remained on Levophed. Transthoracic echocardiogram is ordered to rule out pericardial effusion. None was identified. Levo was weaned off by 1300 patient was
transitioned off insulin drip as well to telemetry phase.
Postoperative day #2: Intermittent pacing was required for bradycardia and pauses. Midodrine was added. Beta-jean-pierre and amiodarone was held. Cardiology did not feel permanent pacemaker was indicated. Chest tubes were removed. PT and OT were
consulted.
Postop day #3: Patient lauri in normal sinus rhythm with PACs. Midodrine was stopped. Low-dose Toprol-XL was resumed with close rhythm monitoring. Patient was felt to be an appropriate candidate for acute rehab postop and he was approved for [facility].
Postop day #4: Patient was gently diuresed. No new issues overnight. He is recommended for rehab and apparently there will be a bed available tomorrow. No other new issues.
Postoperative day 5: Patient was cleared for discharge to acute rehab. Discharge instructions reviewed with patient extensively his questions were answered to his satisfaction prior to him leaving today.
Home medication changes: Patient will be on dual antiplatelet therapy with Plavix and aspirin for 1 year following CABG for graft patency. Patient was giving a brief 7-day course of oxycodone for acute postop pain.
Discharge Plan
-
Patient Disposition: Acute Rehab Facility
Discharge Diagnosis/Procedures: -Status post median sternotomy, CABG x 2 (THOMAS to LAD, GSV to OM)/Endoscopic harvest/prep of RLE GSV/ELAA (40mm AtriClip), by Dr. Condon, 02/18/25
-Multivessel coronary artery disease
-Left ventricular ejection [id number]% per intraop Transesophageal echocardiogram
-Mild mitral regurgitation
-Hypertension
-Hyperlipidemia
-Prediabetes (A1C 5.9)
-Obstructive sleep apnea(uses own CPAP)
-Gastroesophageal reflux disease
-Hard of hearing(uses bilateral hearing aids)
-History of skin cancer on face s/p excision
-Former tobacco use (quit 1999)
-Chronic back pain
-Degenerative joint disease
-History offrequent UTI's
-History of colonoscopy
-Acute postop blood loss/Anemia (stable without blood transfusion)
-Acute postop bradycardia with frequent PACs, symptomatic requiring temporary pacing
-Acute postop atelectasis
-Acute postop hypovolemia with subsequent hypervolemia
-Acute postop EKG changes suspicious of acute pericarditis/has +rub
-Acute postop pulmonary insufficiency
Diet: Low Cholesterol and Low Sodium
Activity: No strenuous activity
Driving Restrictions: Not until seen by your Dr
Bathing Restrictions: OK to Shower
Other Services: Cardiac Rehab
Specialty Instructions: Weigh Daily- Call MD for wt gain/loss 3 lbs overnight/5 lbs in 1 week
Referrals:
CT Transitional Care Nurse [Outside] - in one to two days
Referral Note:
The Cardiothoracic Transitional Care Nurse will call you to set up a visit in 1-2 days.
[facility] [Outside] - 04/02/25 1:00 pm
Referral Note: Cardiac Rehab Orientation appointment is on 04/02/25 at 1:00 pm
The Cardiac Rehab gym is located on the first floor of the [facility].
Rebeca Henry CRNP [Specified Professional Personl, Cardiology] - 04/01/25 10:00 am
Caity Escalante PA-C [Family Provider, Internal Medicine] - in four to six weeks
Referral Note: Please make an apppointment in four to six weeks.
Taj Condon MD [Active, Cardiac Surgery] - 03/19/25 2:00 pm
Prescriptions:
New
clopidogrel 75 mg Tablet
75 mg PO DAILY Qty: 30 2RF
oxycodone 5 mg Tablet
5 mg PO Q4HPRN PRN (Reason: moderate pain) 7 Days Qty: 28 0RF
acetaminophen 325 mg Tablet
650 mg PO Q4HPRN PRN (Reason: mild pain,headache,temp >101F ) Qty: 30 0RF
Continued
atorvastatin 40 mg Tablet
40 mg PO HS
metoprolol succinate 25 mg tablet extended release 24 hr
25 mg PO DAILY
Changed
aspirin 81 mg Tablet,Chewable
81 mg PO DAILY Qty: 0 0RF
Discontinued
nitroglycerin 0.4 mg tablet, sublingual
0.4 mg sublingual [id number] PRN (Reason: chest pain) Qty: 25 2RF
Patient Comments:
Not Used
Care Plan Goals
Care Plan Goals:
Problem: Readiness for enhanced knowledge related to diagnosis and treatment plan
Goal: Understand your diagnosis and treatment plan needs, including medications if applicable.
Instructions: Know your diagnosis, underlying causes and treatment plan options, including medications if applicable. Consult with your health care team to learn about your diagnosis and treatment plan, including medications if applicable.
Discharge Date and Time
Print Language: CYMRO
[2025-02-23 08:29] VITALS: BP 119/68
[2025-02-23] MEDS: PLAVIX 75 MG PO (08:32)
[2025-02-23] MEDS: FEOSOL 325 MG PO (08:32)
[2025-02-23] MEDS: SENOKOT-S 1 TABLET PO (08:32)
[2025-02-23] MEDS: VITAMIN C 500 MG PO (08:32)
[2025-02-23] MEDS: LIDOCAINE 4% PATCH 1 PATCH TOPICAL (08:32)
[2025-02-23] MEDS: PROTONIX 40 MG PO (08:32)
[2025-02-23] MEDS: PACERONE 200 MG PO (08:33)
[2025-02-23] MEDS: NSS IV (08:33)
[2025-02-23] MEDS: LOW STRENGTH ASPIRIN 81 MG PO (08:33)
[2025-02-23] MEDS: TOPROL XL 12.5 MG PO (08:33)
--- NOTE | 2025-02-23 08:45 | PTCARENOTE ---
Assumed care of patient at 0700. Pt is awake, alert, and oriented. No complaints of pain at this time. Pt remains SR with HR 81. BP 119/68 MAP 82. Epicardial AV wires cut by CT BERTTimothy, this AM. Pulse oximetry 95% on room air. Pt with occasional
productive cough. Pt reports having a BM this AM. Voiding without issue in bathroom. Midsternal incision with post-surgical dressing in place. Right groin puncture approximated with surgical adhesive, ecchymotic. Right leg incision approximated with
surgical adhesive. Chest tube site sutures removed by CT BERTTimothy. Pt currently OOB in chair having breakfast with call boswell within reach.
[2025-02-23 11:06] VITALS: BP 100/63
[2025-02-23] MEDS: PREVNAR 20 0.5 ML IM (11:10)
--- NOTE | 2025-02-23 11:45 | PTCARENOTE ---
Discharge order received. Discussed discharge with pt, questions addressed. Vitals obtained. Tele monitor and peripheral IV removed. Report called to [facility]. Hospital transport contacted and transported pt via stretcher. Pt stable at discharge.
== END 2025-02-23 11:50 | DRG 235 ==
LOC: CVICU 05:11
PROVIDERS: Anesthesiology; Nurse Practitioner; ADMITTING PHYSICIAN Thoracic Surgery (Cardiothoracic Vascular Surgery); FAMILY PHYSICIAN Physician Assistant; OTHER PHYSICIAN Internal Medicine Critical Care Medicine
PROC: 02100ZC Bypass Coronary Artery, One Artery from Thoracic Artery, Open Approach (ICD-10-PCS; 2025-02-18)
PROC: 06BP4ZZ Excision of Right Saphenous Vein, Percutaneous Endoscopic Approach (ICD-10-PCS; 2025-02-18)
PROC: B24BZZ4 Ultrasonography of Heart with Aorta, Transesophageal (ICD-10-PCS; 2025-02-18)
PROC: 02L70CK Occlusion of Left Atrial Appendage with Extraluminal Device, Open Approach (ICD-10-PCS; 2025-02-18)
PROC: 021009W Bypass Coronary Artery, One Artery from Aorta with Autologous Venous Tissue, Open Approach (ICD-10-PCS; 2025-02-18)
PROC: 5A1221Z Performance of Cardiac Output, Continuous (ICD-10-PCS; 2025-02-18)
PROC: 3E0234Z Introduction of Serum, Toxoid and Vaccine into Muscle, Percutaneous Approach (ICD-10-PCS; 2025-02-23)
DX: I25.10 Atherosclerotic heart disease of native coronary artery without angina pectoris (principal); J95.1 Acute pulmonary insufficiency following thoracic surgery; D62 Acute posthemorrhagic anemia; J98.11 Atelectasis; I30.8 Other forms of acute pericarditis; E78.5 Hyperlipidemia, unspecified; G47.33 Obstructive sleep apnea (adult) (pediatric); R00.1 Bradycardia, unspecified; Y83.2 Surgical operation with anastomosis, bypass or graft as the cause of abnormal reaction of the patient, or of later complication, without mention of misadventure at the time of the procedure; I10 Essential (primary) hypertension; R73.03 Prediabetes; K21.9 Gastro-esophageal reflux disease without esophagitis; H91.93 Unspecified hearing loss, bilateral; G89.29 Other chronic pain; M54.9 Dorsalgia, unspecified; M19.90 Unspecified osteoarthritis, unspecified site; E86.1 Hypovolemia; E87.70 Fluid overload, unspecified; I95.9 Hypotension, unspecified; Z23 Encounter for immunization; Z79.82 Long term (current) use of aspirin; Z79.899 Other long term (current) drug therapy; Z82.49 Family history of ischemic heart disease and other diseases of the circulatory system; Z87.440 Personal history of urinary (tract) infections; Z87.891 Personal history of nicotine dependence
CPT/HCPCS: 36415; 71045; 71046; 71250; 80048; 80053; 81003; 82248; 82330; 82565; 82805; 82947; 82962; 83036; 83735; 84132; 84302; 84520; 85014; 85018; 85025; 85027; 85049; 85610; 85730; 86803; 86850; 86900; 86901; 86920; 87070; 90677; 93005; 93308; 93312; 93320; 93321; 93325; 93880; 93970; 94002; 94010; 97116; 97163; 97167; G0009; Q9950

== ENCOUNTER 2025-03-20 11:45 | Outpatient (RCR) | payer MEDICARE, OTHER, SELFPAY | END 2025-03-20 23:59 | disposition home or self-care (01) | LOC: RPT 11:45 | PROVIDERS: ATTENDING PHYSICIAN Physical Medicine & Rehabilitation; FAMILY PHYSICIAN Physician Assistant | DX: T82.2 Mechanical complication of coronary artery bypass graft and biological heart valve graft (principal); R41.841 Cognitive communication deficit; R26.89 Other abnormalities of gait and mobility; Z73.6 Limitation of activities due to disability | CPT/HCPCS: 96125; 97110; 97112; 97116; 97163; 97530 ==

== ENCOUNTER 2025-03-27 15:26 | Outpatient (RCR) | payer MEDICARE, OTHER, SELFPAY | END 2025-03-27 23:59 | disposition home or self-care (01) | LOC: RPT 15:26 | PROVIDERS: ATTENDING PHYSICIAN Physical Medicine & Rehabilitation; FAMILY PHYSICIAN Physician Assistant | DX: T82.2 Mechanical complication of coronary artery bypass graft and biological heart valve graft (principal); R41.841 Cognitive communication deficit; R26.89 Other abnormalities of gait and mobility; Z73.6 Limitation of activities due to disability | CPT/HCPCS: 97110; 97112; 97530 ==

== ENCOUNTER 2025-04-19 09:50 | Outpatient (RCR) | payer MEDICARE, OTHER, SELFPAY | END 2025-04-19 23:59 | disposition home or self-care (01) | LOC: CRHB 09:50 | PROVIDERS: ATTENDING PHYSICIAN Internal Medicine Cardiovascular Disease | DX: Z95.1 Presence of aortocoronary bypass graft (principal) | CPT/HCPCS: G0422; G0423 ==

== ENCOUNTER 2025-05-20 10:11 | Outpatient (RCR) | payer MEDICARE, OTHER, SELFPAY | END 2025-05-20 23:59 | disposition home or self-care (01) | LOC: CRHB 10:11 | PROVIDERS: ATTENDING PHYSICIAN Internal Medicine Cardiovascular Disease | DX: I25.10 Atherosclerotic heart disease of native coronary artery without angina pectoris (principal); Z95.1 Presence of aortocoronary bypass graft | CPT/HCPCS: G0422; G0423 ==

== ENCOUNTER → 2025-06-12 11:09 | Outpatient (REF) | payer MEDICARE, OTHER, SELFPAY | LOC: RAD 11:09 | PROVIDERS: ATTENDING PHYSICIAN Internal Medicine | DX: M25.551 Pain in right hip (principal) | CPT/HCPCS: 73502 ==

== ENCOUNTER 2025-06-17 10:04 | Outpatient (RCR) | payer MEDICARE, OTHER, SELFPAY ==
[2025-06-12 12:47] LABS: HDL Cholesterol 46 mg/dl; LDL Cholesterol, Calculated 93 mg/dl; Very Low Density Lipoprotein 17 mg/dl (0-30)
== END 2025-06-17 23:59 | disposition home or self-care (01) ==
LOC: CRHB 10:04
PROVIDERS: ATTENDING PHYSICIAN Internal Medicine Cardiovascular Disease
DX: I25.10 Atherosclerotic heart disease of native coronary artery without angina pectoris (principal); Z95.1 Presence of aortocoronary bypass graft
CPT/HCPCS: 36415; 80061; G0422; G0423

== ENCOUNTER 2025-07-03 09:15 | Outpatient (RCR) | payer MEDICARE, OTHER, SELFPAY | END 2025-07-03 11:00 | disposition home or self-care (01) | LOC: CRHB 09:15 | PROVIDERS: ATTENDING PHYSICIAN Internal Medicine Cardiovascular Disease | DX: I25.10 Atherosclerotic heart disease of native coronary artery without angina pectoris (principal); Z95.1 Presence of aortocoronary bypass graft | CPT/HCPCS: G0422; G0423 ==

== ENCOUNTER → 2025-07-16 10:26 | Outpatient (REF) | payer MEDICARE, OTHER, SELFPAY ==
[2025-07-16 14:23] LABS: Hematocrit 46.2 % (39.0-52.0); Hemoglobin 15.5 g/dL (13.0-18.0); Mean Corp Hgb Conc. 33.5 g/dL (33.0-37.0); Mean Corpuscular Volume 87.0 fL (80.0-94.0); Platelet Count 193 10^3/uL (130-400); Red Cell Dist. Width 16.3 % (11.5-14.5)
[2025-07-16 15:26] LABS: Blood Urea Nitrogen 19 mg/dl (9-20); Calcium 9.8 mg/dl (8.4-10.2); Carbon Dioxide 31 mmol/L (22-30); Chloride 102 mmol/L (98-107); Glucose 88 mg/dl (70-99); Potassium 4.8 mmol/L (3.5-5.1); Sodium 138 mmol/L (135-145); eGFR > 60.00
== END ==
LOC: SDSPAT 10:26
PROVIDERS: ATTENDING PHYSICIAN Surgery; FAMILY PHYSICIAN Internal Medicine
DX: Z01.818 Encounter for other preprocedural examination (principal)
CPT/HCPCS: 36415; 80048; 85027

== ENCOUNTER 2025-07-31 05:52 | Day surgery (SDC) | payer MEDICARE, OTHER, SELFPAY ==
[2025-07-17 14:41] VITALS: BMI 26.2
[2025-07-31] VITALS (11 sets, daily range): BP systolic 104–125; BP diastolic 61–81; BMI 26.2
[2025-07-31] MEDS: TYLENOL 1000 MG PO (06:34)
[2025-07-31] MEDS: NORMOSOL-R/PLASMALYTE-A 1000 IV (06:43)
== END 2025-07-31 12:40 | disposition home or self-care (01) ==
LOC: SDS 05:52
PROVIDERS: ATTENDING PHYSICIAN Surgery; FAMILY PHYSICIAN Internal Medicine
DX: K40.90 Unilateral inguinal hernia, without obstruction or gangrene, not specified as recurrent (principal)
CPT/HCPCS: 49650; C1781